=== PATIENT | female | born 1935 | race Caucasian/White ===

== ENCOUNTER → 2017-03-03 | Outpatient (CLI) | payer OTHER ==
[~2017-03-03] MED LIST: ASPI325T PO; ATOR20TA PO; AVASINJ IV; CITA10TA4 PO; NAPR220T95 PO; PLAV75TA PO; ZITHTAB PO
--- NOTE | 2017-03-04 09:30 | RSPPFT ---
DATE OF PROCEDURE: 03/03/17 COMMENTS: Spirometry shows FVC of 1.4 at 56% of predicted, FEV1 of 0.6 at 36%, FEV1/FVC ratio is decreased. Flow is decreased at FEF 25, FEF 50, FEF 75 and FEF 25-75. Good response after acutely inhaled bronchodilator treatment noted. Lung volumes show residual volume is normal. TLC is normal. Diffusion capacity is decreased. Flow volume loop indicates an obstructive pattern. IMPRESSION: 1. Severe obstructive lung disease. 2. Good response after bronchodilator treatment. 3. Normal lung volumes. 4. Severely decreased diffusion capacity.
== END ==
LOC: HRSP 12:56
PROVIDERS: ATTEND Internal Medicine
DX: R06.00 Dyspnea, unspecified (principal)
CPT/HCPCS: 94060; 94726; 94729

== ENCOUNTER 2017-04-16 09:47 | Emergency (ER) | payer OTHER ==
[~2017-04-16] VITALS: Ht 154.9 cm; Wt 61.2 kg
[~2017-04-16 09:47] MED LIST changes: -ZITHTAB PO
[2017-04-16 09:48] VITALS: BP 163/74; PULSE 95; RESP 20; TEMP 98.6; O2SAT 94
[2017-04-16] MEDS ORDERED: SODIUM CHLORIDE 0.9% FLUSH 10 ML FLUSH IVF PRN (10:15)
--- NOTE | 2017-04-16 10:17 | PD ---
HPI Chief Complaint: GI Complaint Time Seen by Provider: 10:10 Travel History International Travel<30 days: No Contact w/Intl Traveler<30days: No Traveled to known affect area: No History of Present Illness HPI 81-year-old female patient presents to the ER today for 2 days history of coughing up small specks of blood. She states that she has had several weeks' history of some shortness of breath and dyspnea on exertion. She denies any fevers, chest pains, vomiting, black stools, bleeding gums, or any other issues. She has history of atrial fibrillation and is on Eliquis, has been on it for about 5 months. She denies any previous history of coughing up blood. Modifying Factors: None Associated Signs & Symptoms: Hemoptysis for 2 days, shortness of breath Risk Factors: On Eliquis [facility] Past Medical History Hx Anticoagulant Therapy: Yes (DAILY ASPIRIN) Arthritis: Yes Atrial Fibrillation: Yes Anxiety: Yes Depression: Yes Cancer: Yes (COLON) High Cholesterol: Yes Chemotherapy: No Cerebrovascular Accident: Yes (TIA) Coronary Artery Disease: Yes Diminished Hearing: No Gastrointestinal Disorders: Yes (COLON CA) Headaches: Yes Hypertension: Yes Kidney Stones: Yes Respiratory: Yes Immunizations Current: Yes Radiation Therapy: No Menopausal: Yes Past Surgical History Abdominal Surgery: Yes (COLON RESECTION, UMBILLICAL HERNIA REPAIR) Cholecystectomy: Yes (1991) Gynecologic Surgery: Yes (HYSTERECTOMY) Hysterectomy: Yes (PARTIAL) Other Surgery: Yes (COLON RESECTION 1991) Social History Alcohol Use: No Tobacco Use: No (QUIT 20 YEARS AGO (12/25/15)) Substance Use: No Allergies-Medications (Allergen,Severity, Reaction): Coded Allergies: No Known Allergies (Unverified , 12/25/15) Reported Meds & Prescriptions Reported Meds & Active Scripts Active Reported Plavix (Clopidogrel Bisulfate) 75 Mg Tab 75 Mg PO DAILY Aleve (Naproxen Sodium) 220 Mg Tab 220 Mg PO BID Atorvastatin 20 mg tab (Atorvastatin Calcium) 20 Mg Tab 20 Mg PO HS Aspirin 325 mg (Aspirin) 325 Mg Tab 325 Mg PO DAILY Avastin 25 Mg/ml inj (Bevacizumab) Inj 1.25 Mg IV Citalopram Hydrobromide 10 Mg Tab 10 Mg PO DAILY Review of Systems Except as stated in HPI: all other systems reviewed are Neg Physical Exam Narrative GENERAL: Well-developed elderly white female patient currently in mild distress. Awake and oriented 3. SKIN: Focused skin assessment warm/dry. HEAD: Atraumatic. Normocephalic. EYES: Pupils equal and round. No scleral icterus. No injection or drainage. ENT: No nasal bleeding or discharge. Mucous membranes pink and moist. NECK: Trachea midline. No JVD. CARDIOVASCULAR: Regular rate and rhythm. No murmur appreciated. RESPIRATORY: No accessory muscle use. Clear to auscultation. Breath sounds equal bilaterally. GASTROINTESTINAL: Abdomen soft, non-tender, nondistended. Hepatic and splenic margins not palpable. MUSCULOSKELETAL: No obvious deformities. No clubbing. No cyanosis. No edema. NEUROLOGICAL: Awake and alert. No obvious cranial nerve deficits. Motor grossly within normal limits. Normal speech. PSYCHIATRIC: Appropriate mood and affect; insight and judgment normal. Data Data Last Documented VS Vital Signs Date Time Temp Pulse Resp B/P (MAP) Pulse Ox O2 Delivery O2 Flow Rate FiO2 04/16/17 11:28 65 16 151/58 (89) 94 04/16/17 09:48 98.6 Orders Orders Chest, Single Ap (04/16/17 10:03) Complete Blood Count With Diff (04/16/17 10:10) Comprehensive Metabolic Panel (04/16/17 10:10) B-Type Natriuretic Peptide (04/16/17 10:10) D-Dimer (04/16/17 10:10) Act Partial Throm Time (Ptt) (04/16/17 10:10) Prothrombin Time / Inr (Pt) (04/16/17 10:10) Iv Access Insert/Monitor (04/16/17 10:10) Ecg Monitoring (04/16/17 10:10) Oximetry (04/16/17 10:10) Oxygen Administration (04/16/17 10:10) Sodium Chloride 0.9% Flush (Ns Flush) (04/16/17 10:15) Labs Laboratory Tests Test 04/16/17 10:15 White Blood Count 7.3 TH/MM3 Red Blood Count 4.32 MIL/MM3 Hemoglobin 13.0 GM/DL Hematocrit 38.2 % Mean Corpuscular Volume 88.4 FL Mean Corpuscular Hemoglobin 30.1 PG Mean Corpuscular Hemoglobin Concent 34.1 % Red Cell Distribution Width 12.1 % Platelet Count 345 TH/MM3 Mean Platelet Volume 7.0 FL Neutrophils (%) (Auto) 69.1 % Lymphocytes (%) (Auto) 18.5 % Monocytes (%) (Auto) 10.1 % Eosinophils (%) (Auto) 1.8 % Basophils (%) (Auto) 0.5 % Neutrophils # (Auto) 5.2 TH/MM3 Lymphocytes # (Auto) 1.3 TH/MM3 Monocytes # (Auto) 0.7 TH/MM3 Eosinophils # (Auto) 0.1 TH/MM3 Basophils # (Auto) 0.0 TH/MM3 CBC Comment DIFF FINAL Differential Comment Prothrombin Time 10.2 SEC Prothromb Time International Ratio 0.9 RATIO Activated Partial Thromboplast Time 27.3 SEC D-Dimer Quantitative (PE/DVT) 0.47 MG/L FEU Blood Urea Nitrogen 9 MG/DL Creatinine 0.67 MG/DL Random Glucose 101 MG/DL Total Protein 6.9 GM/DL Albumin 3.2 GM/DL Calcium Level 9.0 MG/DL Alkaline Phosphatase 87 U/L Aspartate Amino Transf (AST/SGOT) 16 U/L Alanine Aminotransferase (ALT/SGPT) 15 U/L Total Bilirubin 0.5 MG/DL Sodium Level 131 MEQ/L Potassium Level 3.3 MEQ/L Chloride Level 92 MEQ/L Carbon Dioxide Level 31.8 MEQ/L Anion Gap 7 MEQ/L Estimat Glomerular Filtration Rate 85 ML/MIN B-Type Natriuretic Peptide 42 PG/ML MDM Medical Decision Making Medical Screen Exam Complete: Yes Emergency Medical Condition: Yes Medical Record Reviewed: Yes Interpretation(s) Laboratory Tests Test 04/16/17 10:15 Monocytes (%) (Auto) 10.1 % (0.0-8.0) Albumin 3.2 GM/DL (3.4-5.0) Sodium Level 131 MEQ/L (136-145) Potassium Level 3.3 MEQ/L (3.5-5.1) Chloride Level 92 MEQ/L (98-107) Estimat Glomerular Filtration Rate 85 ML/MIN (>89) Last 24 hours Impressions Chest X-Ray 04/16/17 1003 Signed Impressions: Service Date/Time: Tuesday, April 16, 2017 10:31 - CONCLUSION: No acute cardiopulmonary abnormality is identified. Stephen Casas MD Differential Diagnosis Bronchitis versus coagulopathy versus pneumonia Narrative Course Chest x-ray did not show any signs of acute pneumonia. Patient states she has been coughing with sputum production suspected bronchitis has irritated her airways causing some of the bleeding. Patient is on Eliquis which she last took last night. And I suspect that this is was making it worse. Vital signs are stable in the ER. H&H is stable. She is coughing up small amounts of blood at time and at this point, I do not think that this would cause significant anemia as well as this settles down within the next day or so. My plan would be to hold Eliquis. I have talked her regarding close follow-up on Tuesday with primary care doctor and crm marketing manager versus observation admission, and she states that she would prefer to go home and see how she does. They may need to reevaluate whether Eliquis can be restarted at that point. She may need further follow-up with pulmonary medicine as well if symptoms continue. She apparently has already gotten a pulmonary function test ordered by Dr. Aguirre which can be evaluated further with him. Return for any worsening in bleeding, shortness of breath, or new symptoms as needed. The plan has discussed with her and she states understanding. Diagnosis Primary Impression: Cough with hemoptysis Additional Impression: Bronchitis Med/Other Pt SpecificInfo: Prescription(s) given, Med Stopped (Eliquis) Scripts Azithromycin (Zithromax Z-Roberto) 250 Mg Dspk 250 MG PO DIRECTED for Infection, #1 DSPK 0 Refills 500 MG (2 tabs) day 1, then 1 tab days 2-5. Prov: Demi Delcid MD 04/16/17 Disposition: 01 DISCHARGE HOME Condition: Stable Demi Delcid MD Apr 16, 2017 10:17
[2017-04-16 10:26] LABS: AUTOMATED NEUTROPHIL # 5.2 TH/MM3 (1.8-7.7); BASOPHIL % 0.5 % (0.0-2.0); EOSINOPHIL # 0.1 TH/MM3 (0-0.4); EOSINOPHIL % 1.8 % (0.0-4.0); HEMATOCRIT 38.2 % (35.0-46.0); HEMO FLAGS DIFF FINAL; LYMPH % 18.5 % (9.0-44.0); LYMPHOCYTE # 1.3 TH/MM3 (1.0-4.8); MEAN CELL VOLUME 88.4 FL (80.0-100.0); MEAN CORPUSCULAR HEMOGLOBIN 30.1 PG (27.0-34.0); MEAN CORPUSCULAR HGB CONC 34.1 % (32.0-36.0); MONO % 10.1 % (0.0-8.0); NEUT % 69.1 % (16.0-70.0); PLATELET COUNT 345 TH/MM3 (150-450); RED BLOOD COUNT 4.32 MIL/MM3 (4.00-5.30); RED CELL DISTRIBUTION WIDTH 12.1 % (11.6-17.2); WHITE BLOOD COUNT 7.3 TH/MM3 (4.0-11.0)
[2017-04-16 10:34] LABS: CHLORIDE 92 MEQ/L (98-107); POTASSIUM 3.3 MEQ/L (3.5-5.1); SODIUM (NA) 131 MEQ/L (136-145)
[2017-04-16 10:37] LABS: ANION GAP 7 MEQ/L (5-15); BICARBONATE 31.8 MEQ/L (21.0-32.0)
[2017-04-16 10:38] LABS: BLOOD UREA NITROGEN 9 MG/DL (7-18)
[2017-04-16 10:40] LABS: ALT (GPT) 15 U/L (10-53); AST (GOT) 16 U/L (15-37); GLOMERULAR FILTRATION RATE 85 ML/MIN (>89)
[2017-04-16 10:42] LABS: TOTAL BILIRUBIN ADULT 0.5 MG/DL (0.2-1.0)
[2017-04-16 10:43] LABS: ALKALINE PHOSPHATASE 87 U/L (45-117)
[2017-04-16 10:55] LABS: APTT (PATIENT) 27.3 SEC (24.3-30.1); INTERNATIONAL NORMALIZED RATIO 0.9 RATIO; PROTHROMBIN TIME - PATIENT 10.2 SEC (9.8-11.6)
--- NOTE | 2017-04-16 11:13 | RADRPT ---
EXAM DATE/TIME: 04/16/2017 10:31 [facility] COMPARISON: CHEST SINGLE AP, October 09, 2014, 21:13. INDICATIONS : Cough. Congestion. MEDICAL HISTORY : None. SURGICAL HISTORY : None. ENCOUNTER: Initial ACUITY: 3 days PAIN SCORE: 6/10 LOCATION: Bilateral chest FINDINGS: Portable AP view of the chest demonstrates a normal-sized cardiac silhouette. No effusion, consolidat ion, or pneumothorax is visualized. The bones and soft tissues demonstrate no acute abnormality. Ther e is calcification of aorta. A cardiac device overlies the left inferior hemithorax. CONCLUSION: No acute cardiopulmonary abnormality is identified. Stephen Casas MD on April 16, 2017 at 11:10 Board Certified Radiologist. This report was verified electronically.
[2017-04-16 11:28] VITALS: BP 151/58; PULSE 65; RESP 16; O2SAT 94
[2017-04-16] MEDS ORDERED: ZITHTAB PO (11:42)
== END 2017-04-16 11:50 | disposition home or self-care (01) ==
LOC: PHED 09:47
DX: J40 Bronchitis, not specified as acute or chronic (principal); R04.2 Hemoptysis; R06.02 Shortness of breath; I48.91 Unspecified atrial fibrillation; Z79.01 Long term (current) use of anticoagulants; Z87.891 Personal history of nicotine dependence
CPT/HCPCS: 71010; 80053; 83880; 85025; 85379; 85610; 85730; 99284

== ENCOUNTER 2017-05-21 12:12 | Emergency (ER) | payer OTHER ==
[~2017-05-21] VITALS: Ht 154.9 cm; Wt 63.0 kg
[~2017-05-21 12:12] MED LIST changes: +ZITHTAB PO
[2017-05-21 12:19] VITALS: BP 189/79; PULSE 70; RESP 16; TEMP 98.9; O2SAT 95
[2017-05-21] MEDS ORDERED: ACETAMINOPHEN 325 MG TAB PO ONE (12:30)
[2017-05-21] MEDS ORDERED: TETANUS/DIPHTHERIA TOXOID ADULT 0.5 ML VIAL IM ONE (12:30)
--- NOTE | 2017-05-21 12:34 | PD ---
HPI Chief Complaint: Fall Time Seen by Provider: 12:25 Travel History International Travel<30 days: No Contact w/Intl Traveler<30days: No Traveled to known affect area: No History of Present Illness HPI The patient is a 81-year-old female who presents to the emergency department via private vehicle for a head injury after a fall. The patient states she was washing the back window of her van with Windex when she stepped backwards, lost her balance, and fell to the ground. The patient denies any loss of consciousness, however, does state she struck the back of her head and has a hematoma over the affected area associated with cephalgia. The patient also complains of a contusion to the left scapula and knocked the wind out of her, complains of some bilateral chest pain after the fall. She also complains of pain over the left hip secondary to the fall, however, is able to bear weight without difficulty. She does note abrasions to left upper extremity and the left foot, is unsure when her last tetanus shot was administered. The patient was taken off of Eliquis approximately 6 weeks ago for hemoptysis. The patient denies any acute shortness of breath, does note bilateral chest wall pain after falling. Symptoms are mild to moderate, exacerbated after falling, and there are no current alleviating factors. PFSH Past Medical History Hx Anticoagulant Therapy: No (off for apporx 1 month) Arthritis: Yes Atrial Fibrillation: Yes Anxiety: Yes Depression: Yes Cancer: Yes (COLON) Cardiovascular Problems: Yes (htn on med, a-fib) High Cholesterol: Yes Chemotherapy: No Cerebrovascular Accident: Yes (tia's) Coronary Artery Disease: Yes Diminished Hearing: No Gastrointestinal Disorders: Yes (COLON CA) Headaches: Yes Hypertension: Yes Kidney Stones: Yes Respiratory: Yes (copd) Immunizations Current: Yes Radiation Therapy: No Menopausal: Yes Past Surgical History Abdominal Surgery: Yes (COLON RESECTION, UMBILLICAL HERNIA REPAIR) Cholecystectomy: Yes (1991) Gynecologic Surgery: Yes (HYSTERECTOMY) Hysterectomy: Yes (PARTIAL) Other Surgery: Yes (COLON RESECTION 1991) Social History Alcohol Use: No Tobacco Use: No (QUIT 20 YEARS AGO (12/25/15)) Substance Use: No Allergies-Medications (Allergen,Severity, Reaction): Coded Allergies: No Known Allergies (Unverified , 05/21/17) Reported Meds & Prescriptions Reported Meds & Active Scripts Active Reported Avastin Inj (Bevacizumab) 25 Mg/Ml Inj Symbicort Inh (Budesonide/Formoterol Fumarate) 80-4.5 Mcg/Act Aero 2 Puff INH Q12HR Hydrochlorothiazide 25 Mg Tab 25 Mg PO DAILY Atorvastatin (Atorvastatin Calcium) 20 Mg Tab 20 Mg PO HS Citalopram (Citalopram Hydrobromide) 10 Mg Tab 10 Mg PO DAILY Review of Systems Except as stated in HPI: all other systems reviewed are Neg HENT: Positive: Headaches, No: Neck Pain Cardiovascular: Positive: Chest Pain or Discomfort (bilateral chest wall pain after falling) Respiratory: No: Shortness of Breath Gastrointestinal: No: Nausea, Vomiting, Abdominal Pain Musculoskeletal: Positive: Pain Skin: Positive Other (multiple abrasions) Neurologic: Positive: Headache, No: Change in Mentation, Paresthesia, Sensory Disturbance Physical Exam Narrative GENERAL: Awake, alert, pleasant 81-year-old female who appears her stated age and is in no acute respiratory distress. SKIN: Focused skin assessment warm/dry. Multiple abrasions to left upper extremity and left ankle. HEAD: Hematoma noted over the superior left occipital area with no active bleeding.. EYES: Pupils equal and round. Pupils are 3 mm bilateral and reactive. ENT: No nasal bleeding or discharge. Mucous membranes pink and moist. NECK: Trachea midline. No JVD. No midline tenderness. CARDIOVASCULAR: Regular rate and rhythm. No murmur appreciated. RESPIRATORY: No accessory muscle use. Clear to auscultation. Breath sounds equal bilaterally. GASTROINTESTINAL: Abdomen soft, non-tender, nondistended. Back: Patient has a contusion and abrasion over the left scapula. MUSCULOSKELETAL: Hematoma noted over the left hip the patient is able to bear weight on the affected extremity. Full range of motion of the upper extremity is bilaterally. NEUROLOGICAL: Awake and alert. No obvious cranial nerve deficits. Motor grossly within normal limits. Normal speech. Nonfocal. Oriented 4. Follows commands without difficulty. PSYCHIATRIC: Appropriate mood and affect; insight and judgment normal. Data Data Last Documented VS Vital Signs Date Time Temp Pulse Resp B/P (MAP) Pulse Ox O2 Delivery O2 Flow Rate FiO2 05/21/17 12:19 98.9 70 16 189/79 (115) [address] Brain W/O Iv Contrast(Rout) (05/21/17 ) Chest, Single Ap (05/21/17 ) Pelvis, Ap Only (Routine) (05/21/17 ) Tetanus/Diphtheria Tox Adult (Tetanus/Di (05/21/17 12:30) Acetaminophen (Tylenol) (05/21/17 12:30) Ct Cerv Spine W/O Contrast (05/21/17 ) Ed Discharge Order (05/21/17 14:57) MDM Medical Decision Making Medical Screen Exam Complete: Yes Emergency Medical Condition: Yes Medical Record Reviewed: Yes Interpretation(s) Chest x-ray reveals no acute disease X-ray pelvis reveals osteopenia with no acute fracture or malalignment. Postsurgical changes in the pelvis. Last Impressions Head CT 05/21/17 0000 Signed Impressions: Service Date/Time: Sunday, May 21, 2017 13:28 - CONCLUSION: Soft tissue swelling over the left parietal bone with no evidence of hemorrhage or fracture. Tiago Reece MD Cervical Spine CT 05/21/17 0000 Signed Impressions: Service Date/Time: Sunday, May 21, 2017 13:28 - CONCLUSION: Negative trauma CT. Tiago Reece MD Differential Diagnosis Differential diagnosis includes mechanical fall, closed head injury, intracranial hemorrhage, subdural hemorrhage, skull fracture, hip contusion, hip fracture, pneumothorax, scapular fracture, chest wall contusion. Narrative Course CT of the brain and cervical spine were obtained. X-ray of the chest and pelvis were obtained. The patient's tetanus shot was updated. The patient was administered Tylenol 650 mg orally for pain. CT the brain and cervical spine are negative. X-ray the chest and x-ray of the pelvis are unremarkable. The patient is advised to have wound care instructions, Steri-Strips were applied to the skin flap on the extensor surface of the left hand, she is advised to clean the area twice daily with soap and water and Polysporin as directed. Tylenol and or Motrin as needed for pain. Follow-up with her primary physician. Diagnosis Primary Impression: Hematoma Additional Impressions: Multiple abrasions Closed head injury Qualified Codes: S09.90XA - Unspecified injury of head, initial encounter Patient Instructions: General Instructions Additional Instructions: Tylenol and/or Motrin as needed for pain. Ice to the hematoma. Wound care instructions. Follow-up with her primary physician. Please provide the patient a copy of her CT results and lab results at discharge. Return if symptoms worsen or progress. Med/Other Pt SpecificInfo: No Change to Meds Disposition: 01 DISCHARGE HOME Condition: Stable Theodore Harper MD May 21, 2017 12:34
[2017-05-21] MEDS ORDERED: SYMB80AE INH (12:43)
[2017-05-21] MEDS ORDERED: CITA10TA4 PO (12:43)
[2017-05-21] MEDS ORDERED: HYDR25TA5 PO (12:43)
[2017-05-21] MEDS ORDERED: ATOR20TA15 PO (12:43)
[2017-05-21] MEDS ORDERED: BEVA100P (12:43)
--- NOTE | 2017-05-21 13:48 | RADRPT ---
EXAM DATE/TIME: 05/21/2017 13:28 [facility] COMPARISON: CT BRAIN W/O CONTRAST, December 25, 2015, 13:43. INDICATIONS : Trauma, fall today onto posterior head. RADIATION DOSE: 39.33 CTDIvol (mGy) MEDICAL HISTORY : Carcinoma, colon. Hypertension. SURGICAL HISTORY : Hysterectomy. ENCOUNTER: Initial ACUITY: 1 day PAIN SCALE: 4/10 LOCATION: Bilateral head TECHNIQUE: Multiple contiguous axial images were obtained of the head. Using automated exposure control and adj ustment of the mA and/or kV according to patient size, radiation dose was kept as low as reasonably a chievable to obtain optimal diagnostic quality images. DICOM format image data is available electro nically for review and comparison. FINDINGS: CEREBRUM: The ventricles are normal for age. No evidence of midline shift, mass lesion, hemorrhage or acute in farction. No extra-axial fluid collections are seen. POSTERIOR FOSSA: The cerebellum and brainstem are intact. The 4th ventricle is midline. The cerebellopontine angle i s unremarkable. EXTRACRANIAL: The visualized portion of the orbits is intact. SKULL: The calvaria is intact. No evidence of skull fracture. There is soft tissue swelling over the left p arietal bone. CONCLUSION: Soft tissue swelling over the left parietal bone with no evidence of hemorrhage or fr acture. Tiago Reece MD on May 21, 2017 at 13:45 Board Certified Radiologist. This report was verified electronically.
--- NOTE | 2017-05-21 13:59 | RADRPT ---
EXAM DATE/TIME: 05/21/2017 13:28 [facility] COMPARISON: No previous studies available for comparison. INDICATIONS : Trauma, fall today onto posterior head RADIATION DOSE: 42.10 CTDIvol (mGy) MEDICAL HISTORY : Hypertension. Carcinoma, colon. SURGICAL HISTORY : Hysterectomy. ENCOUNTER: Initial ACUITY: 1 day PAIN SCALE: 4/10 LOCATION: Bilateral neck TECHNIQUE: Volumetric scanning of the cervical spine was performed. Multiplanar reconstructions i n the sagittal, coronal and oblique axial planes were performed. Using automated exposure control a nd adjustment of the mA and/or kV according to patient size, radiation dose was kept as low as reason ably achievable to obtain optimal diagnostic quality images. DICOM format image data is available e lectronically for review and comparison. FINDINGS: The sagittal reconstructions demonstrate normal alignment and normal prevertebral soft tissues. The d ens is intact and there is a normal atlantoaxial relationship. Degenerative disc changes present at t he C5-6 and C6-7 levels with disc space narrowing and anterior spurring. There are degenerative villegas es involving the atlantoaxial joint. The axial images demonstrate that the vertebral bodies and posterior elements are intact. The soft ti ssues are within normal limits. There is no evidence of acute fracture or malalignment. There are deg enerative changes involving the left facet joints. CONCLUSION: Negative trauma CT. Tiago Reece MD on May 21, 2017 at 13:57 Board Certified Radiologist. This report was verified electronically.
--- NOTE | 2017-05-21 14:51 | RADRPT ---
EXAM DATE/TIME: 05/21/2017 14:25 [facility] COMPARISON: CHEST SINGLE AP, April 16, 2017, 10:31. INDICATIONS : Fall MEDICAL HISTORY : Stroke. a fib SURGICAL HISTORY : A fib recorder ENCOUNTER: Initial ACUITY: 1 day PAIN SCORE: 0/10 LOCATION: Bilateral chest FINDINGS: A single view of the chest demonstrates the lungs to be symmetrically aerated without evidence of mas s, infiltrate or effusion. The cardiomediastinal contours are unremarkable. Mild atherosclerotic ch anges are again noted in the aorta. Costal cartilage calcifications present. There is mild scoliosis. Osseous structures are intact. A cardiac device is again projected over the left lower chest. CONCLUSION: No acute disease. Tiago Reece MD on May 21, 2017 at 14:49 Board Certified Radiologist. This report was verified electronically.
--- NOTE | 2017-05-21 14:54 | RADRPT ---
EXAM DATE/TIME: 05/21/2017 14:31 [facility] COMPARISON: No previous studies available for comparison. INDICATIONS : Fall. Pelvic pain. MEDICAL HISTORY : Stroke. SURGICAL HISTORY : a fib recorder ENCOUNTER: Initial ACUITY: 1 day PAIN SCORE: 6/10 LOCATION: Left hip area FINDINGS: A single frontal view of the pelvis demonstrates no evidence of fracture. The bony pelvic ring is in tact. There is diffuse osteopenia. There are multiple surgical clips and hoang in the pelvis. Anast omotic hoang are present as well. The soft tissues are intact. CONCLUSION: 1. Osteopenia with no acute fracture or malalignment. 2. Post surgical changes in the pelvis. Tiago Reece MD on May 21, 2017 at 14:51 Board Certified Radiologist. This report was verified electronically.
== END 2017-05-21 15:06 | disposition home or self-care (01) ==
LOC: PHED 12:12
DX: S09.90XA Unspecified injury of head, initial encounter (principal); S00.83XA Contusion of other part of head, initial encounter; S40.012A Contusion of left shoulder, initial encounter; M85.80 Other specified disorders of bone density and structure, unspecified site; R07.9 Chest pain, unspecified; J44.9 Chronic obstructive pulmonary disease, unspecified; I10 Essential (primary) hypertension; W18.30XA Fall on same level, unspecified, initial encounter; Z23 Encounter for immunization
CPT/HCPCS: 70450; 71010; 72125; 72170; 90471; 90714

== ENCOUNTER 2017-10-07 06:30 | Day surgery (SDC) | payer OTHER ==
[~2017-10-07] VITALS: Ht 154.9 cm; Wt 62.7 kg
[~2017-10-07 06:30] MED LIST changes: -ASPI325T PO; -ATOR20TA PO; +ATOR20TA15 PO; -AVASINJ IV; +BEVA100P; +HYDR25TA5 PO; -NAPR220T95 PO; -PLAV75TA PO; +SYMB80AE INH; -ZITHTAB PO
[2017-10-07 06:44] VITALS: BP 174/84; PULSE 75; RESP 20; TEMP 98.1; O2SAT 92
[2017-10-07] MEDS ORDERED: VITA10002 PO (06:46)
[2017-10-07] MEDS ORDERED: SYMB160A INH (06:46)
[2017-10-07] MEDS ORDERED: BUSP5TAB PO (06:46)
[2017-10-07] MEDS ORDERED: APIX5TAB PO (06:50)
[2017-10-07] MEDS ORDERED: SODIUM CHLORID 0.9% 500 ML IV PRN (07:00)
[2017-10-07] MEDS ORDERED: CHLORHEXIDINE GLUCONATE 2 % 1 PACK (2 CLOTHS) TOPICAL PRN (07:00)
[2017-10-07] MEDS ORDERED: METOPROLOL TARTRATE 25 MG TAB PO PRN (07:00)
[2017-10-07] MEDS ORDERED: LACTATED RINGER'S 1000 ML IV PRN (07:00)
[2017-10-07] MEDS ORDERED: POVIDONE IODINE 5% (ANTISEPSIS KIT) 4 APPLICATIONS EACH NARE PRN (07:00)
[2017-10-07] MEDS ORDERED: SODIUM CHLOR 0.45% 1000 ML INJ 1,000 ML IV SCH (07:00)
[2017-10-07 07:10] LABS: AUTOMATED NEUTROPHIL # 6.2 TH/MM3 (1.8-7.7); BASOPHIL % 0.5 % (0.0-2.0); EOSINOPHIL # 0.2 TH/MM3 (0-0.4); EOSINOPHIL % 2.4 % (0.0-4.0); HEMOGLOBIN 12.1 GM/DL (11.6-15.3); LYMPH % 15.7 % (9.0-44.0); LYMPHOCYTE # 1.4 TH/MM3 (1.0-4.8); MEAN CELL VOLUME 89.9 FL (80.0-100.0); MEAN CORPUSCULAR HGB CONC 34.5 % (32.0-36.0); MEAN PLATELET VOLUME 6.2 FL (7.0-11.0); MONO % 12.4 % (0.0-8.0); MONOCYTE # 1.1 TH/MM3 (0-0.9); PLATELET COUNT 336 TH/MM3 (150-450); RED BLOOD COUNT 3.89 MIL/MM3 (4.00-5.30); RED CELL DISTRIBUTION WIDTH 13.3 % (11.6-17.2); WHITE BLOOD COUNT 8.9 TH/MM3 (4.0-11.0)
[2017-10-07] MEDS ORDERED: DO NOT ADM ANY ANTICOAGULANT DRUGS PRN (08:30)
[2017-10-07 09:05] VITALS: BP 146/72; PULSE 68; RESP 18; TEMP 98.3; O2SAT 94
[2017-10-07 09:20] VITALS: BP 130/68; PULSE 66; RESP 18; O2SAT 94
--- NOTE | 2017-10-07 09:24 | MP ---
cc: Tera Haley MD DATE OF OPERATION: 10/07/2017 PROCEDURE PERFORMED: Fiberoptic bronchoscopy, flexible. REASON FOR BRONCHOSCOPY: Hemoptysis, rule out underlying malignancy. Fiberoptic bronchoscopy performed via LMA. Vocal cords visualized, appeared intact. Trachea mildly hyperemic, yg sharp. Right main stem bronchus, right upper, middle, and lower lobe; left main bronchus, left upper and lower lobes were inspected without obstructive pathology or mass lesion. Washings obtained from both sides of the tracheobronchial tree for routine TB, fungal cultures, as well as cytological exam. [place] biopsy in right lower lobe obtained, which was more hyperemic than the rest of the tracheobronchial tree. No active bleeding was identified. Procedure well tolerated. The patient was transferred to the recovery in stable condition. IMPRESSION: 1. Mild tracheobronchitis. 2. No obstruction or mass lesion. 3. No evidence of active hemoptysis. 4. Procedure well tolerated. 5. The patient transferred to recovery in stable condition. Tera Haley MD WWW/NAIDA , 09:07 AM , 09:22 AM
[2017-10-07 09:50] VITALS: BP 147/71; PULSE 62; RESP 18; O2SAT 94
[2017-10-07 10:45] VITALS: RESP 18; O2SAT 93
--- NOTE | 2017-10-07 11:18 | EKG ---
Date Performed: 10/07/2017 Time Performed: 06:57:39 PTAGE: 82 years EKG: Sinus rhythm NORMAL ECG PREVIOUS TRACING : 05/05/2016 12.35 Since the previous tracing, no significant change noted DOCTOR: Esteban Navarro Interpretating Date/Time 10/07/2017 11:13:00
== END 2017-10-07 11:00 | disposition home or self-care (01) ==
LOC: HRIP 06:30 → HROP 06:30
PROVIDERS: ATTEND Internal Medicine Sleep Medicine
DX: R04.2 Hemoptysis (principal); J40 Bronchitis, not specified as acute or chronic; J44.9 Chronic obstructive pulmonary disease, unspecified; I48.91 Unspecified atrial fibrillation; I10 Essential (primary) hypertension; E78.5 Hyperlipidemia, unspecified; Z01.810 Encounter for preprocedural cardiovascular examination; Z01.818 Encounter for other preprocedural examination
CPT/HCPCS: 31625; 85025; 85610; 85730; 87015; 87070; 87102; 87116; 87205; 87206; 88112; 88305; 93005

== ENCOUNTER 2017-11-10 06:35 | Day surgery (SDC) | payer OTHER ==
[2017-11-10] VITALS (8 sets, daily range): BP systolic 113–175; BP diastolic 49–81; PULSE 50–68; RESP 16–18; TEMP 98.2; O2SAT 91–98
[~2017-11-10] VITALS: Ht 154.9 cm; Wt 69.5 kg
[~2017-11-10 06:35] MED LIST changes: +APIX5TAB PO; +BUSP5TAB PO; +SYMB160A INH; -SYMB80AE INH; +VITA10002 PO
[2017-11-10] MEDS ORDERED: SODIUM CHLOR 0.9% 1000 ML IV SCH (07:15)
[2017-11-10] MEDS ORDERED: LIDOCAINE 1%/EPINEPHrine 1:100,000 SOLN 50 ML VIAL ONE (07:22)
[2017-11-10 07:28] LABS: AUTOMATED NEUTROPHIL # 6.6 TH/MM3 (1.8-7.7); BASOPHIL # 0.1 TH/MM3 (0-0.2); EOSINOPHIL # 0.2 TH/MM3 (0-0.4); EOSINOPHIL % 2.2 % (0.0-4.0); HEMATOCRIT 36.3 % (35.0-46.0); HEMOGLOBIN 12.5 GM/DL (11.6-15.3); LYMPH % 16.3 % (9.0-44.0); LYMPHOCYTE # 1.5 TH/MM3 (1.0-4.8); MEAN CELL VOLUME 89.9 FL (80.0-100.0); MEAN CORPUSCULAR HGB CONC 34.5 % (32.0-36.0); MEAN PLATELET VOLUME 6.6 FL (7.0-11.0); MONO % 10.1 % (0.0-8.0); NEUT % 70.4 % (16.0-70.0); PLATELET COUNT 375 TH/MM3 (150-450); RED BLOOD COUNT 4.04 MIL/MM3 (4.00-5.30); RED CELL DISTRIBUTION WIDTH 13.5 % (11.6-17.2); WHITE BLOOD COUNT 9.4 TH/MM3 (4.0-11.0)
[2017-11-10 07:35] LABS: PROTHROMBIN TIME - PATIENT 9.9 SEC (9.8-11.6)
[2017-11-10] MEDS ORDERED: MIDAZOLAM HCL 2 MG/2 ML VIAL ONE ×2 (08:39→08:40)
[2017-11-10] MEDS ORDERED: oxyCODONE/ACETAMINOPHEN 5 MG/325 MG TAB PO PRN (09:15)
--- NOTE | 2017-11-10 10:46 | RADRPT ---
EXAM DATE/TIME: 11/10/2017 10:12 [facility] COMPARISON: CT NEEDLE BIOPSY LUNG, RIGHT, November 10, 2017, 8:51. INDICATIONS : Post right side biopsy MEDICAL HISTORY : Stroke. atrial fibrillation. SURGICAL HISTORY : atrial fibrillation recorder ENCOUNTER: Initial ACUITY: 1 day PAIN SCORE: 0/10 LOCATION: Left chest FINDINGS: AP expiratory view performed following right lung biopsy fails to reveal any evidence of pneumothorax . COPD and right basilar lung mass again noted. Heart and mediastinal structures are unremarkable. CONCLUSION: No evidence of pneumothorax following right lung biopsy. Garth Virgen MD on November 10, 2017 at 10:42 Board Certified Radiologist. This report was verified electronically.
--- NOTE | 2017-11-11 07:46 | RADRPT ---
EXAM DATE/TIME: 11/10/2017 08:51 [place] COMPARISON: No previous studies available for comparison. INDICATIONS : Right lung mass. SEDATION TIME: 30 minutes BIOPSY SITE: Right Lung MEDICATION(S): 1.) 2 mg midazolam (Versed) IV 2.) 100 mcg fentanyl (Sublimaze) IV DEVICE(S): 1.) 19 gauge Coaxial 2.) 20 gauge Temno core biopsy needle MEDICAL HISTORY : Carcinoma, colon. SURGICAL HISTORY : Cholecystectomy Hysterectomy. Colon resection. ENCOUNTER: Initial ACUITY: 1 day PAIN SCORE: 0/10 LOCATION: Right Lung A total of two core specimen(s) were obtained and sent to the laboratory for pathologic evaluation. PROCEDURE: 1. CT guided lung biopsy. 2. Conscious sedation with continuous EKG and oximetry monitoring. Prior to the procedure informed consent was obtained. Any appropriate prior imaging studies were rev iewed. Using automated exposure control and adjustment of the mA and/or kV according to patient size, radiation dose was kept as low as reasonably achievable to obtain optimal diagnostic quality images. DICOM format image data is available electronically for review and comparison. The site was prepped in a sterile fashion. Full sterile technique was used, including cap, mask, nae rile gloves and gown and a large sterile sheet. Hand hygiene and 2% chlorhexidine and/or betadine/al cohol prep was utilized per protocol for cutaneous antisepsis. The skin and subcutaneous tissues wer e infiltrated with local anesthetic solution. With CT guidance the previously identified target was localized. Biopsy was performed using the presc ribed needle as above. Adequate hemostasis was obtained with compression at the puncture site. Follow-up CT scan reveals no pneumothorax. Conscious sedation was performed with the prescribed dosages and duration as above in the presence of an independent trained radiology nurse to assist in the monitoring of the patient. EKG and oximetry remained stable throughout the procedure. The patient tolerated the procedure well and there were no complications. The patient was sent to Radiology Outpatient Unit in stable condition. CONCLUSION: Uncomplicated CT guided biopsy of right lower lobe mass. Fredo Tyler MD on November 11, 2017 at 7:43 Board Certified Radiologist. This report was verified electronically.
== END 2017-11-10 13:30 | disposition home or self-care (01) ==
LOC: HRAD 06:35 → HRIP 06:39 → HRAD 13:30
PROVIDERS: ATTEND Internal Medicine Sleep Medicine
DX: R22.2 Localized swelling, mass and lump, trunk (principal); I48.91 Unspecified atrial fibrillation; I10 Essential (primary) hypertension; Z86.73 Personal history of transient ischemic attack (TIA), and cerebral infarction without residual deficits; Z85.038 Personal history of other malignant neoplasm of large intestine; Z90.49 Acquired absence of other specified parts of digestive tract; J44.9 Chronic obstructive pulmonary disease, unspecified
CPT/HCPCS: 32405; 71045; 77012; 85025; 85610; 85730; 88305; 99152; 99153; J2250; J3010; J7030

== ENCOUNTER 2018-04-02 05:10 | Inpatient (IN) ==
[2018-04-02] MEDS ORDERED: Morphine Inj 4 MG/ML Vial IV.PUSH ONE (05:24)
--- NOTE | 2018-04-02 05:33 | ED ---
HPI General Chief Complaint: Shortness of Breath/Dyspnea Stated Complaint: Stomach pain x 2 days,cough,short of breath Time Seen by Provider: 04/02/18 05:24 Source: patient Mode of arrival: ambulatory Limitations: no limitations History of Present Illness 82-year-old female with lung cancers completed 37 courses of radiation therapy has COPD atrial fibrillation peripheral vascular disease loop recorder and presents with progressively worsening epigastric pain and shortness of breath. No new lower extremity pain or swelling. Patient had no fever chills. Patient has nausea. Patient has been constipated but had small bowel movements yesterday after drinking prune juice. No report of dysuria. No report of abdominal surgery. Patient states pain is unremitting and intolerable. Patient states pain is reproducible by pushing on her abdomen. Patient denies other concerns or complaints. MD Complaint: shortness of breath and pain with inspiration Severity: moderate Consistency/Duration: intermittent Relieving factors: nothing Exacerbating factors: lying flat, exertion, coughing and inspiration Known history of: COPD and other (lung cancer) Associated symptoms: nausea/vomiting and other (abdominal pain) Treatment prior to arrival: none Related Data Home Medications Medication Instructions Recorded Confirmed alprazolam [Xanax] 0.5 mg PO DAILY PRN 04/02/18 04/02/18 apixaban [Eliquis] 2.5 mg PO BID 04/02/18 04/02/18 atorvastatin 20 mg PO DAILY 04/02/18 04/02/18 citalopram 10 mg PO DAILY 04/02/18 04/02/18 glycopyrrolate-formoterol [Bevespi 2 puff INHALATION QAM AND QPM 04/02/18 [facility] hydrochlorothiazide 25 mg PO DAILY 04/02/18 04/02/18 venlafaxine [Effexor XR] 37.5 mg PO DAILY 04/02/18 04/02/18 Allergies Allergy/AdvReac Type Severity Reaction Status Date / Time No Known Allergies Allergy Unverified 04/02/18 08:00 Review of Systems ROS: all other systems reviewed are negative PMFSH History History Provided By: Patient and Medical Record Medical History Medical History Chronic atrial fibrillation (Acute) Chronic obstructive pulmonary disease (Acute) History of colon cancer (Acute) Hypertension (Acute) Lung cancer (Acute) Transient ischemic attack (Acute) Surgical History Surgical History History of cataract surgery (Acute) History of colonoscopy (Acute) History of hernia repair (Acute) History of hysterectomy (Acute) History of loop recorder (Acute) History of partial colectomy (Acute) History of tonsillectomy (Acute) Social History Social History Smoking Status: Former smoker Tobacco Type: Cigarettes How Often Do You Have a Drink Containing Alcohol: Never Recent Travel in [facility] within the Last 8 Weeks: No Recent Out of Country Travel within the Last 8 Weeks: No Exam Narrative Exam Narrative: GENERAL: Well-nourished, well-developed patient. SKIN: Focused skin assessment warm/dry. HEAD: Normocephalic. EYES: No scleral icterus. No injection or drainage. NECK: Supple, trachea midline. No JVD or lymphadenopathy. CARDIOVASCULAR: Regular rate and rhythm without murmurs, gallops, or rubs. RESPIRATORY: Breath sounds equal bilaterally with wheezing. No accessory muscle use. GASTROINTESTINAL: Abdomen soft, epigastric tenderness to palpation without pulsatile mass, nondistended. MUSCULOSKELETAL: No cyanosis, or edema. BACK: Nontender without obvious deformity. No CVA tenderness. Course Consultations Consultation #1: Spoke with Dr. Gonzalez regarding the patient's case including her hyponatremia my concern for SIADH. He will admit patient to stepdown with telemetry monitoring. Time: 09:31 Initial Documented Vital Signs Temperature 99.2 F 04/02/18 05:14 Pulse Rate 99 H 04/02/18 05:14 Respiratory Rate 18 04/02/18 05:14 Blood Pressure 146/66 H 04/02/18 05:14 Pulse Oximetry 87 L 04/02/18 05:14 Last Documented Vital Signs Temperature 98.5 F 04/02/18 07:10 Pulse Rate 88 04/02/18 09:04 Respiratory Rate 18 04/02/18 09:04 Blood Pressure 151/71 H 04/02/18 09:33 Pulse Oximetry 96 04/02/18 09:10 Sign Out Sign Out Data: Patient Sign Out occurred on 04/02/18 at 07:24. Patient's care was discussed, and care was transferred from Shanta Carlson MD to Giuseppe Pineda MD. Sign Out Comment: Patient 82-year-old female with history of lung cancer presents with shortness of breath room air O2 saturation of 87% and epigastric abdominal pain. Patient recently completed a round of radiation therapy. Patient's had no fever chills. Patient rates pain as progressively intolerable. Patient has reproducible epigastric pain to palpation. EKG is sinus rhythm with no acute injury pattern change. Chest x-ray reveals no acute process. Labs and imaging studies otherwise pending will be referred for follow -up to oncoming physician for assessment and disposition Last updated by Shanta Carlson MD at 04/02/18 07:02 Medical Decision Making MDM Narrative Medical decision making narrative: 82-year-old female presents to the emergency department for complaint of shortness of breath and epigastric pain. Symptoms have been worsening over the past 1 week and exacerbated this morning. Patient has had bowel movements are small in quality but assisted with prune juice. Patient's had nausea without vomiting. Patient has had no chest pain. Patient just completed 37 courses of radiation therapy for lung cancer. Patient does have COPD. Patient denies other concerns or complaints. Medical Screen Exam Complete: Yes Emergency Medical Condition: Yes Differential Diagnosis Differential Diagnosis: Dyspnea PE perforated viscus gastritis peptic ulcer disease esophagitis cholecystitis choledocholithiasis pancreatitis colitis PA ACS pneumonia Medical Records Medical records reviewed: Yes I reviewed the patient's medical records. Lab Data Result diagrams: 04/02/18 06:05 04/02/18 06:05 Lab Results 04/02/18 04/02/18 04/02/18 Range/Units 06:05 06:05 06:05 CBC w Diff Auto diff final WBC 6.7 (4.0-11.0) th/mm3 RBC 3.47 L (4.00-5.30) mil/mm3 Hgb 11.1 L (11.6-15.3) gm/dL Hct 31.4 L (35.0-46.0) % MCV 90.5 (80.0-100.0) fL MCH 31.9 (27.0-34.0) pg MCHC 35.2 (32.0-36.0) % RDW 15.9 (11.6-17.2) % Plt Count 231 (150-450) th/mm3 MPV 6.6 L (7.0-11.0) fL Neut % (Auto) 64.6 (16.0-70.0) % Lymph % (Auto) 14.4 (9.0-44.0) % Bowman % (Auto) 17.5 H (0.0-8.0) % Eos % (Auto) 3.4 (0.0-4.0) % Baso % (Auto) 0.1 (0.0-2.0) % Neut # (Auto) 4.3 (1.8-7.7) th/mm3 Lymph # (Auto) 1.0 (1.0-4.8) th/mm3 Bowman # (Auto) 1.2 H (0.0-0.9) th/mm3 Eos # (Auto) 0.2 (0.0-0.4) th/mm3 Baso # (Auto) 0.0 (0.0-0.2) th/mm3 WBC Differential . Differential Comment . PT 9.5 L (9.8-11.6) sec INR 0.9 Ratio APTT 26.8 (24.3-30.1) sec Sodium 120 L* (136-145) meq/L Potassium 3.2 L (3.5-5.1) meq/L Chloride 80 L (98-107) meq/L Carbon Dioxide 30.2 (21.0-32.0) meq/L Anion Gap 10 (5-15) meq/L BUN 8 (7-18) mg/dL Creatinine 0.55 (0.50-1.00) mg/dL Estimated GFR Greater than 89 (>89) mL/min Random Glucose 123 H (74-106) mg/dL Lactic Acid (0.4-2.0) mmol/L Calcium 8.1 L (8.5-10.1) mg/dL Magnesium 1.5 (1.5-2.5) mg/dL Total Bilirubin 0.7 (0.2-1.0) mg/dL AST 22 (15-37) U/L ALT 19 (10-53) U/L Alkaline Phosphatase 91 (45-117) U/L Total Creatine Kinase 197 H (26-192) U/L CK-MB (CK-2) 3.1 (0.5-3.6) ng/mL CK-MB (CK-2) % 1.6 (0.0-4.0) % Troponin I Less than 0.02 L (0.02-0.05) ng/mL Total Protein 6.9 (6.4-8.2) g/dL Albumin 2.9 L (3.4-5.0) g/dL Lipase 65 L (73-393) U/L Ur Collection Type Urine Color (Yellw/Straw) Urine Clarity (Clear) Urine pH (5.0-8.5) Ur Specific [place] (1.002-1.035) Urine Protein (Neg-Trace) mg/dL Urine Glucose (UA) (Negative) mg/dL Urine Ketones (Negative) mg/dL Urine Occult Blood (Negative) Urine Nitrate (Negative) Urine Bilirubin (Negative) Urine Urobilinogen (Less than 2) mg/dL Ur Leukocyte Esterase (Negative) Urine RBC (0-3) /hpf Ur Squamous Epith Cells (0-5) /hpf Micro UA Comment Ur Microscopic Review Urine Culture Comments 04/02/18 04/02/18 Range/Units 06:05 08:21 CBC w Diff WBC (4.0-11.0) th/mm3 RBC (4.00-5.30) mil/mm3 Hgb (11.6-15.3) gm/dL Hct (35.0-46.0) % MCV (80.0-100.0) fL MCH (27.0-34.0) pg MCHC (32.0-36.0) % RDW (11.6-17.2) % Plt Count (150-450) th/mm3 MPV (7.0-11.0) fL Neut % (Auto) (16.0-70.0) % Lymph % (Auto) (9.0-44.0) % Bowman % (Auto) (0.0-8.0) % Eos % (Auto) (0.0-4.0) % Baso % (Auto) (0.0-2.0) % Neut # (Auto) (1.8-7.7) th/mm3 Lymph # (Auto) (1.0-4.8) th/mm3 Bowman # (Auto) (0.0-0.9) th/mm3 Eos # (Auto) (0.0-0.4) th/mm3 Baso # (Auto) (0.0-0.2) th/mm3 WBC Differential Differential Comment PT (9.8-11.6) sec INR Ratio APTT (24.3-30.1) sec Sodium (136-145) meq/L Potassium (3.5-5.1) meq/L Chloride (98-107) meq/L Carbon Dioxide (21.0-32.0) meq/L Anion Gap (5-15) meq/L BUN (7-18) mg/dL Creatinine (0.50-1.00) mg/dL Estimated GFR (>89) mL/min Random Glucose (74-106) mg/dL Lactic Acid 1.0 (0.4-2.0) mmol/L Calcium (8.5-10.1) mg/dL Magnesium (1.5-2.5) mg/dL Total Bilirubin (0.2-1.0) mg/dL AST (15-37) U/L ALT (10-53) U/L Alkaline Phosphatase (45-117) U/L Total Creatine Kinase (26-192) U/L CK-MB (CK-2) (0.5-3.6) ng/mL CK-MB (CK-2) % (0.0-4.0) % Troponin I (0.02-0.05) ng/mL Total Protein (6.4-8.2) g/dL Albumin (3.4-5.0) g/dL Lipase (73-393) U/L Ur Collection Type Clean catch Urine Color Yellow (Yellw/Straw) Urine Clarity Clear (Clear) Urine pH 7.0 (5.0-8.5) Ur Specific [place] 1.010 (1.002-1.035) Urine Protein Negative (Neg-Trace) mg/dL Urine Glucose (UA) Negative (Negative) mg/dL Urine Ketones Trace H (Negative) mg/dL Urine Occult Blood Trace (Negative) Urine Nitrate Negative (Negative) Urine Bilirubin Negative (Negative) Urine Urobilinogen 0.2 (Less than 2) mg/dL Ur Leukocyte Esterase Trace H (Negative) Urine RBC 0-3 (0-3) /hpf Ur Squamous Epith Cells 0-5 (0-5) /hpf Micro UA Comment Culture not ind Ur Microscopic Review Microscopic reviewed Urine Culture Comments Culture not ind Imaging Data Radiologist's impression: Chest X-Ray 04/02/18 05:24 CONCLUSION: No infiltrates seen. Hyperaerated lungs. Abdomen/Pelvis CT 04/02/18 06:21 CONCLUSION: 1. Irregular mass identified within the right lower lobe consistent with the patient's known carcinoma. Interstitial thickening identified within the right lower lobe and right middle lobe may represent lymphangitic spread of disease versus superimposed infectious process. 2. No evidence of inflammatory process within the abdomen or pelvis. No evidence of metastatic disease within the abdomen or pelvis. Chest CTA 04/02/18 06:21 CONCLUSION: 1. No right lower lobe carcinoma. The interstitial thickening and consolidation involving the right lower lobe and right middle lobe may represent lymphangitic spread of disease versus superimposed infectious process. 2. No evidence of PE. ECG Data EKG Prior to Arrival: No Attestation: I personally reviewed and interpreted this ECG as follows: Prior ECG tracings: not available for review Interpretation: EKG: Normal sinus rhythm rate 95 no pattern noted occasional PAC Discharge Plan Discharge Disposition Patient Disposition: 30 Still Patient Discharge Condition Condition: Stable Discharge Details Diagnosis: Hyponatremia, Acute hypokalemia Physicians Team ED Provider: Giuseppe Pineda Primary Care Provider: Olga Inman Attending Provider: Tiago Gonzalez Discharge Interventions Interventions: Vital Signs Last Done: 04/02/18 09:04 Status ED Status: Admitted Patient
--- NOTE | 2018-04-02 06:34 | XR ---
EXAM DATE: 04/02/2018 6:12 AM EDT AGE/SEX: 82 years / Female INDICATIONS: COPD. CLINICAL DATA: This is the patient's initial encounter. Patient reports that signs and symptoms have been present for 1 day and indicates a pain score of 5/10. MEDICAL/SURGICAL HISTORY: Hypertension. Carcinoma, colon. Carcinoma, lung. TIA. COPD. A-Fib. Hysterectomy. Cholecystectomy. Colon surgery. Loop recorder. COMPARISON: [facility], XR CHEST PA AND LAT, 11/17/2017. . FINDINGS: A single AP view of the chest demonstrates the lungs to be symmetrically aerated without evidence of mass, infiltrate or effusion. Horizontal linear atelectasis at the right lung base. The cardiomediast inal contours are unremarkable. Osseous structures are intact. Loop recorder device in place. CONCLUSION: No infiltrates seen. Hyperaerated lungs. Electronically signed by: Jeffy Walker MD 04/02/2018 6:33 AM EDT
[2018-04-02 06:44] LABS: Baso % (Auto) 0.1 % (0.0-2.0); Eos # (Auto) 0.2 th/mm3 (0.0-0.4); Eos % (Auto) 3.4 % (0.0-4.0); Hematocrit 31.4 % (35.0-46.0); Hemoglobin 11.1 gm/dL (11.6-15.3); Lymph % (Auto) 14.4 % (9.0-44.0); Mean Corpuscular HGB Conc 35.2 % (32.0-36.0); Mean Corpuscular Hemoglobin 31.9 pg (27.0-34.0); Mean Corpuscular Volume 90.5 fL (80.0-100.0); Mean Platelet Volume 6.6 fL (7.0-11.0); Mono # (Auto) 1.2 th/mm3 (0.0-0.9); Mono % (Auto) 17.5 % (0.0-8.0); Neut # (Auto) 4.3 th/mm3 (1.8-7.7); Neut % (Auto) 64.6 % (16.0-70.0); Platelet Count 231 th/mm3 (150-450); Red Blood Count 3.47 mil/mm3 (4.00-5.30); Red Cell Distribution Width 15.9 % (11.6-17.2); White Blood Count 6.7 th/mm3 (4.0-11.0)
[2018-04-02 07:14] LABS: Activated Partial Thrombo Time 26.8 sec (24.3-30.1); INR 0.9 Ratio; Prothrombin Time 9.5 sec (9.8-11.6)
[2018-04-02 07:36] LABS: Alanine Aminotransferase 19 U/L (10-53); Albumin 2.9 g/dL (3.4-5.0); Alkaline Phosphatase 91 U/L (45-117); Anion Gap 10 meq/L (5-15); Aspartate Aminotransferase 22 U/L (15-37); Blood Urea Nitrogen 8 mg/dL (7-18); Calcium 8.1 mg/dL (8.5-10.1); Carbon Dioxide 30.2 meq/L (21.0-32.0); Chloride 80 meq/L (98-107); Creatine Kinase 197 U/L (26-192); Glomerular Filtration Rate Greater Than 89 mL/min (>89); Glucose,Random 123 mg/dL (74-106); Lipase 65 U/L (73-393); Potassium 3.2 meq/L (3.5-5.1); Total Protein 6.9 g/dL (6.4-8.2)
[2018-04-02 07:48] LABS: Sodium 120 meq/L (136-145)
[2018-04-02] MEDS ORDERED: Potassium Chlor 10 mEq Premix 10 MEQ/100 ML PIGGYBACK IV.SIG ONE (08:03)
[2018-04-02] MEDS ORDERED: Potassium Chloride 25 MEQ Effervescent Tablet PO ONE (08:03)
[2018-04-02] MEDS ORDERED: Aluminum/Magnesium/Simethacone Susp 30 ML UDC PO ONE (08:11)
[2018-04-02] MEDS ORDERED: Potassium Chloride 20 MEQ Pwd Pkt NG/OG ONE (08:11)
[2018-04-02 08:45] LABS: Magnesium 1.5 mg/dL (1.5-2.5)
[2018-04-02 08:50] LABS: Bilirubin,Urine Negative (Negative); Clarity,Urine Clear (Clear); Color,Urine Yellow (Yellw/Straw); Glucose,Urine (UA) Negative (Negative); Leukocyte Esterase,Urine Trace (Negative); Nitrite,Urine Negative (Negative); Urobilinogen,Urine 0.2 mg/dL (Less than 2)
[2018-04-02 08:57] LABS: RBC,Urine 0-3 /hpf (0-3); Squamous Epithelial Cell,Urine 0-5 /hpf (0-5)
--- NOTE | 2018-04-02 09:08 | CT ---
EXAM DATE: 04/02/2018 8:53 AM EDT AGE/SEX: 82 years / Female INDICATIONS: Epigastric pain. CLINICAL DATA: This is the patient's initial encounter. Patient reports that signs and symptoms have been present for 2 days and indicates a pain score of 7/10. MEDICAL/SURGICAL HISTORY: Carcinoma, lung. None. ORAL CONTRAST: No oral contrast ingested. RADIATION DOSE: 16.66 CTDI (mGy) COMPARISON: [facility], CT ABDOMEN & PELVIS W CONTRAST, 02/09/2015. [facility], CHEST 1V SINGLE AP, 04/02/2018. [facility], CT SIMULATION, 01/27/2018. . TECHNIQUE: Multiple contiguous axial images were obtained through the abdomen and pelvis following b olus infusion of 75 ml Omnipaque 350 (iohexol) nonionic water-soluble contrast as a cumulative dose for multiple exams. No oral contrast ingested. Using automated exposure control and adjustment of t he mA and/or kV according to patient size, radiation dose was kept as low as reasonably achievable to obtain optimal diagnostic quality images. DICOM format image data is available electronically for r eview and comparison. FINDINGS: Lower Lungs: There is an irregular mass identified within the right lower lobe measuring 3.0 cm trans versely by 1.9 cm craniocaudally. There is interstitial thickening within the adjacent right lower lo be and within the right middle lobe. Heart size is normal. Liver: The liver has a homogeneous density without space-occupying lesion. There is no dilation of th e biliary tree. Spleen: Homogeneous density without enlargement. Pancreas: Unremarkable without mass or calcification. Kidneys: Normal in size and shape. No evidence of mass or hydronephrosis. Adrenal Glands: Unremarkable. Aorta: Extensive atherosclerosis. There is a small abdominal aortic aneurysm identified below the l evel of the renal arteries measuring 2.7 cm in AP diameter. Bowel/Mesentery: The bowel loops are grossly unremarkable. The cecum and sigmoid colon have a normal configuration. Abdominal Wall: Intact. Retroperitoneum: No evidence of adenopathy in the retrocrural, para-aortic, or deep pelvic regions. Bladder: Contours are smooth. Reproductive Organs: Surgically absent. Inguinal: The inguinal region is unremarkable without evidence of adenopathy. Bony Structures: Osteopenia and degenerative changes. CONCLUSION: 1. Irregular mass identified within the right lower lobe consistent with the patient's known carcino ma. Interstitial thickening identified within the right lower lobe and right middle lobe may represen t lymphangitic spread of disease versus superimposed infectious process. 2. No evidence of inflammatory process within the abdomen or pelvis. No evidence of metastatic disea se within the abdomen or pelvis. Electronically signed by: Lisa Guzman MD 04/02/2018 9:07 AM EDT
--- NOTE | 2018-04-02 09:18 | CT ---
EXAM DATE: 04/02/2018 8:55 AM EDT AGE/SEX: 82 years / Female INDICATIONS: Short of breath. CLINICAL DATA: This is the patient's initial encounter. Patient reports that signs and symptoms have been present for 2 days and indicates a pain score of 7/10. MEDICAL/SURGICAL HISTORY: Carcinoma, lung. None. RADIATION DOSE: 12.40 CTDI (mGy) COMPARISON: [facility], CHEST 1V SINGLE AP, 04/02/2018. [facility], CHEST EXPIRATION ONLY, 11/10/2017. . TECHNIQUE: Volumetric scanning was performed using a multi-row detector CT scanner during bolus infu kofi of 75 ml Omnipaque 350 (iohexol) nonionic water-soluble contrast as a cumulative dose for multi ple exams. The data was post processed with a variety of visualization algorithms including full volu me maximum intensity projection and sliding thin slab reformation. Using automated exposure control a nd adjustment of the mA and/or kV according to patient size, radiation dose was kept as low as reason ably achievable to obtain optimal diagnostic quality images. DICOM format image data is available el ectronically for review and comparison. FINDINGS: Pulmonary Arteries: No filling defects are seen in the pulmonary arteries out to the subsegmental ve ssels. The left and right pulmonary arteries are normal in diameter. Lung: Irregular 0.3 cm mass identified within the right lower lobe. There is airspace consolidation and interstitial thickening with groundglass opacity identified within the adjacent right lower lobe as well as within the right middle lobe. The remainder of the lungs are clear. Effusion: None. Mediastinum: No evidence of mediastinal or hilar adenopathy. Other: The axilla is unremarkable. CONCLUSION: 1. No right lower lobe carcinoma. The interstitial thickening and consolidation involving the right lower lobe and right middle lobe may represent lymphangitic spread of disease versus superimposed inf ectious process. 2. No evidence of PE. Electronically signed by: Lisa Guzman MD 04/02/2018 9:16 AM EDT
[2018-04-02 09:30] LABS: CKMB Percent 1.6 % (0.0-4.0); Creatine Kinase MB 3.1 ng/mL (0.5-3.6)
--- NOTE | 2018-04-02 11:56 | P.HP ---
History of Present Illness Primary Care Physician: Olga Inman MD Chief Complaint: Shortness of breath and difficulty breathing History of Present Illness: 82-year-old female with known history of hypertension, chronic atrial fibrillation, chronic obstructive pulmonary disease, lung cancer, colon cancer who presented to the hospital due to shortness of breath and dyspnea. Patient states that her last 6 weeks she has had shortness of breath, dyspnea. She is undergoing treatment for lung cancer by Dr. Mohan (radiation oncologist), Dr. Lamar (oncologist). Patient is to undergo an radiation treatment. Patient states that she is not a candidate for chemotherapy. Over the last 2 days she has been experiencing increased shortness of breath, dyspnea, mucus production. Because that reason she came to emergency department for evaluation. Respiratory mclain patient had both the unremarkable workup. Patient had workup incidentally patient was found to have significant hyponatremia. Patient was asymptomatic for any hyponatremia. Because of the significant level patient will require hospitalization for further management. Upon evaluating the patient she is resting comfortably on room air with good O2 saturations. Full discussion with her condition and she does understand. Patient is very eager to go home in the next day or 2. - Diagnosis (1) Hyponatremia Inpatient Certification: I certify that the inpatient services were ordered in accordance with Medicare regulations governing the order. This includes certification that hospital inpatient services are reasonable and necessary and in the case of services not specified as inpatient-only under 42 CFR 419.22(n), that they are appropriately provided as inpatient services in accordance to with the 2-midnight benchmark under 43 CFR 412.3(e) Estimated Total Length of Stay (Days): 3 Plans for Post Hospital Care: Not yet determined Review of Systems All other systems reviewed negative except as stated in HPI Respiratory: Reports cough, Reports excessive phlegm production, Reports shortness of breath PMFSH - History History Provided By: Patient, Medical Record - Medical History Medical History: Medical History (Last Updated 04/02/18 @ 11:56 by DANIEL Fischer) Chronic atrial fibrillation Chronic obstructive pulmonary disease History of colon cancer Hypertension Lung cancer Transient ischemic attack - Surgical History Surgical History: Surgical History (Last Updated 04/02/18 @ 11:56 by DANIEL Fischer) History of cataract surgery History of colonoscopy History of hernia repair History of hysterectomy History of loop recorder History of partial colectomy History of tonsillectomy - Family History Family History: Family History (Last Updated 04/02/18 @ 12:27 by DANIEL Fischer) Sister History of lung cancer - Tobacco History Smoking Status: Former smoker Tobacco Type: Cigarettes - Alcohol History How Often Do You Have a Drink Containing Alcohol: Never - Travel History Recent Travel in the [place] Within the Last 8 Weeks: No Recent Travel Out of the Country Within the Last 8 Weeks: No - Immunization History Tetanus Immunization: <5 Years Medications and Allergies Active Medications: Active Medications Acetaminophen (Tylenol) 650 mg PO Q4H PRN PRN Reason: Temp > 100.4 Apixaban (Eliquis) 2.5 mg PO BID [facility] Last Admin: 04/02/18 11:49 Dose: 2.5 mg Atorvastatin Calcium (Lipitor) 20 mg PO DAILY [facility] Last Admin: 04/02/18 11:49 Dose: 20 mg Senna/Docusate Sodium (Aide-Colace) 1 tab PO BID [facility] Sodium Chloride (Ns Flush) 2 ml IV.FLUSH PRN PRN PRN Reason: FLUSH AFTER USING IV ACCESS Allergies Allergy/AdvReac Type Severity Reaction Status Date / Time No Known Allergies Allergy Unverified 04/02/18 08:00 Home Medications Medication Instructions Recorded Confirmed Type alprazolam [Xanax] 0.5 mg PO DAILY PRN 04/02/18 04/02/18 History apixaban [Eliquis] 2.5 mg PO DAILY 04/02/18 04/03/18 History atorvastatin 20 mg PO DAILY 04/02/18 04/02/18 History citalopram 10 mg PO DAILY 04/02/18 04/02/18 History glycopyrrolate-formoterol [Bevespi 2 puff INHALATION QAM AND QPM 04/02/18 History Aerosphere] hydrochlorothiazide 25 mg PO DAILY 04/02/18 04/02/18 History venlafaxine [Effexor XR] 37.5 mg PO DAILY 04/02/18 04/02/18 History Exam Vital signs: Vital Signs 04/02/18 05:14 04/02/18 05:30 04/02/18 05:51 Temperature 99.2 F Pulse Rate 99 H 99 H 94 H Respiratory Rate 18 20 Blood Pressure 146/66 H Pulse Oximetry 87 L 93 L 04/02/18 06:25 04/02/18 06:27 04/02/18 07:10 Temperature 98.5 F Pulse Rate 93 H 88 Respiratory Rate 20 18 Blood Pressure 149/76 H 105/54 L Pulse Oximetry 93 L 94 L 96 04/02/18 07:15 04/02/18 09:04 04/02/18 09:10 Temperature Pulse Rate 88 Respiratory Rate 18 Blood Pressure 142/62 H Pulse Oximetry 96 96 96 04/02/18 09:33 Temperature Pulse Rate Respiratory Rate Blood Pressure 151/71 H Pulse Oximetry Intake & Output 04/01/18 04/02/18 04/02/18 18:59 06:59 18:59 Intake Total 100 / 100 Balance 100 / 100 Weight 68.3 kg Intake: IV 100 / 100 KCl 10 mEq Premix Inj 10 meq In 100 / 100 100 ml @ 100 mls/hr IV.SIG ONCE ONE Rx#:[id number] Narrative: GENERAL: Well-developed, well-nourished, in no acute distress. alert and orientated HEENT: Head is normocephalic without any lesions or masses noted. Facial features are symmetric. Eyes: Pupils equal round reactive to light. Extraocular muscles are intact. Conjunctivae were clear. Oropharyngeal: Pharynx without any erythema edema. Tongue is midline without deviation. Buccal mucosa is moist without any masses or lesions NECK: Supple without any masses. Trachea midline no deviation. No JVD, no bruits are appreciated CARDIAC: Regular rhythm, regular rate. S1/S2 are heard. No murmurs gallops or rubs. LUNGS: Diminished breath sounds noted bilaterally no wheeze, rhonchi or rales. No use of accessory muscles on inspiration or expiration. ABDOMEN: Soft, nontender. Nondistended. Bowel sounds heard in all 4 quadrants. No organomegaly or masses. Negative rebound, negative guarding EXTREMITIES: No edema, pulses are equal bilaterally. No cyanosis or clubbing NEUROLOGY: Mood and affect appear appropriate. Cranial nerves II through XII grossly intact. Muscle strength 5/5 in upper and lower extremities bilaterally. Deep tendon reflexes are 2+ in upper and lower extremities bilaterally. Results - Labs CBC & Chem 7: 04/03/18 06:00 04/03/18 06:00 Labs: Laboratory Results - last 24 hr 04/02/18 04/02/18 04/02/18 06:05 06:05 06:05 CBC w Diff Auto diff final WBC 6.7 RBC 3.47 L Hgb 11.1 L Hct 31.4 L MCV 90.5 MCH 31.9 MCHC 35.2 RDW 15.9 Plt Count 231 MPV 6.6 L Neut % (Auto) 64.6 Lymph % (Auto) 14.4 Hopkins % (Auto) 17.5 H Eos % (Auto) 3.4 Baso % (Auto) 0.1 Neut # (Auto) 4.3 Lymph # (Auto) 1.0 Hopkins # (Auto) 1.2 H Eos # (Auto) 0.2 Baso # (Auto) 0.0 WBC Differential . Differential Comment . PT 9.5 L INR 0.9 APTT 26.8 Sodium 120 L* Potassium 3.2 L Chloride 80 L Carbon Dioxide 30.2 Anion Gap 10 BUN 8 Creatinine 0.55 Estimated GFR Greater than 89 Random Glucose 123 H Lactic Acid Calcium 8.1 L Magnesium 1.5 Total Bilirubin 0.7 AST 22 ALT 19 Alkaline Phosphatase 91 Total Creatine Kinase 197 H CK-MB (CK-2) 3.1 CK-MB (CK-2) % 1.6 Troponin I Less than 0.02 L Total Protein 6.9 Albumin 2.9 L Lipase 65 L Ur Collection Type Urine Color Urine Clarity Urine pH Ur Specific Weld Urine Protein Urine Glucose (UA) Urine Ketones Urine Occult Blood Urine Nitrate Urine Bilirubin Urine Urobilinogen Ur Leukocyte Esterase Urine RBC Ur Squamous Epith Cells Micro UA Comment Ur Microscopic Review Urine Culture Comments 04/02/18 04/02/18 06:05 08:21 CBC w Diff WBC RBC Hgb Hct MCV MCH MCHC RDW Plt Count MPV Neut % (Auto) Lymph % (Auto) Hopkins % (Auto) Eos % (Auto) Baso % (Auto) Neut # (Auto) Lymph # (Auto) Hopkins # (Auto) Eos # (Auto) Baso # (Auto) WBC Differential Differential Comment PT INR APTT Sodium Potassium Chloride Carbon Dioxide Anion Gap BUN Creatinine Estimated GFR Random Glucose Lactic Acid 1.0 Calcium Magnesium Total Bilirubin AST ALT Alkaline Phosphatase Total Creatine Kinase CK-MB (CK-2) CK-MB (CK-2) % Troponin I Total Protein Albumin Lipase Ur Collection Type Clean catch Urine Color Yellow Urine Clarity Clear Urine pH 7.0 Ur Specific Weld 1.010 Urine Protein Negative Urine Glucose (UA) Negative Urine Ketones Trace H Urine Occult Blood Trace Urine Nitrate Negative Urine Bilirubin Negative Urine Urobilinogen 0.2 Ur Leukocyte Esterase Trace H Urine RBC 0-3 Ur Squamous Epith Cells 0-5 Micro UA Comment Culture not ind Ur Microscopic Review Microscopic reviewed Urine Culture Comments Culture not ind - Imaging Impressions Chest X-Ray 04/02/18 05:24 CONCLUSION: No infiltrates seen. Hyperaerated lungs. Abdomen/Pelvis CT 04/02/18 06:21 CONCLUSION: 1. Irregular mass identified within the right lower lobe consistent with the patient's known carcinoma. Interstitial thickening identified within the right lower lobe and right middle lobe may represent lymphangitic spread of disease versus superimposed infectious process. 2. No evidence of inflammatory process within the abdomen or pelvis. No evidence of metastatic disease within the abdomen or pelvis. Chest CTA 04/02/18 06:21 CONCLUSION: 1. No right lower lobe carcinoma. The interstitial thickening and consolidation involving the right lower lobe and right middle lobe may represent lymphangitic spread of disease versus superimposed infectious process. 2. No evidence of PE. Caprini VTE Risk Assessment Caprini VTE Risk Assessment: Moderate/High Risk (score >= 2) Caprini Risk Assessment Model: Point Value = 1 Point Value = 2 Point Value = 3 Point Value = 5 Age 41-60 Minor surgery BMI > 25 kg/m2 Swollen legs Varicose veins or History of unexplained or recurrent spontaneous Oral contraceptives or hormone replacement Sepsis (< 1 month) Serious lung disease, including pneumonia (< 1 month) Abnormal pulmonary function Acute myocardial infarction Congestive heart failure (< 1 month) History of inflammatory bowel disease Medical patient at bed rest Age 61-74 Arthroscopic surgery Major open surgery (> 45 min) Laparoscopic surgery (> 45 min) Malignancy Confined to bed (> 72 hours) Immobilizing plaster cast Central venous access Age >= 75 History of VTE Family history of VTE Factor V Leiden Prothrombin [id number] Lupus anticoagulant Anticardiolipin antibodies Elevated serum homocysteine Heparin-induced thrombocytopenia Other congenital or acquired thrombophilia Stroke (< 1 month) Elective arthroplasty Hip, pelvis, or leg fracture Acute spinal cord injury (< 1 month) Prophylaxis Regimen: Total Risk Factor Score Risk Level Prophylaxis Regimen 0-1 Low Early ambulation 2 Moderate Order ONE of the following: *Sequential Compression Device (SCD) *Heparin 5000 units SQ BID 3-4 Higher Order ONE of the following medications: *Heparin 5000 units SQ TID *Enoxaparin/Lovenox 40 mg SQ daily (WT < 150 kg, CrCl > 30 mL/min) *Enoxaparin/Lovenox 30 mg SQ daily (WT < 150 kg, CrCl > 10-29 mL/min) *Enoxaparin/Lovenox 30 mg SQ BID (WT < 150 kg, CrCl > 30 mL/min) AND/OR *Sequential Compression Device (SCD) 5 or more Highest Order ONE of the following medications: *Heparin 5000 units SQ TID (Preferred with Epidurals) *Enoxaparin/Lovenox 40 mg SQ daily (WT < 150 kg, CrCl > 30 mL/min) *Enoxaparin/Lovenox 30 mg SQ daily (WT < 150 kg, CrCl > 10-29 mL/min) *Enoxaparin/Lovenox 30 mg SQ BID (WT < 150 kg, CrCl > 30 mL/min) AND *Sequential Compression Device (SCD) Assessment and Plan - Assessment (1) Hyponatremia Code(s): E87.1 - Hypo-osmolality and hyponatremia Status: Acute - Plan Hyponatremia -Likely multifactorial with patient on HCTZ diuretic, SSRI, SNRI, lung cancer -We will do further evaluation to include urine osmolality, serum osmolality, urine sodium, TSH -We will hold HCTZ -We will place patient on fluid restriction 1500 mL's daily -Continue to follow sodium level Lung cancer -Patient is undergoing outpatient management with Dr. Lamar, Dr. Mohan -CT scan does show right lower, with right lower and right middle lobe interstitial thickening -Patient will continue outpatient follow-up Chronic obstructive pulmonary disease -Continue O2 sat mentation maintain O2 sats greater than 92% -Duo nebs Chronic atrial fibrillation -Continue home medications -Patient anticoagulated with Eliquis Anxiety -Continue home medications DVT prevention -Patient is on Eliquis
--- NOTE | 2018-04-02 12:43 | ECG ---
Date Performed: 04/02/2018 Time Performed: 05:52:05 PTAGE: 82 years EKG: Sinus rhythm WITH OCCASIONAL SUPRAVENTRICULAR PREMATURE COMPLEXES Since previous tracing, no significant change n oted BORDERLINE ECG PREVIOUS TRACING : 10/07/2017 06.57 DOCTOR: Jose Rafael Mckinley Interpretating Date/Time 04/02/2018 12:40:48
[2018-04-02 16:38] LABS: Anion Gap 8 meq/L (5-15); Blood Urea Nitrogen 8 mg/dL (7-18); Calcium 8.3 mg/dL (8.5-10.1); Carbon Dioxide 30.6 meq/L (21.0-32.0); Chloride 84 meq/L (98-107); Glomerular Filtration Rate Greater Than 89 mL/min (>89); Glucose,Random 108 mg/dL (74-106); Potassium 3.7 meq/L (3.5-5.1)
[2018-04-02 16:40] LABS: Sodium 123 meq/L (136-145)
[2018-04-02] MEDS: ALPRAZolam 0.5 MG Tablet PO PRN (19:11)
[2018-04-02] MEDS: Acetaminophen 325 MG Tablet PO PRN (20:21)
[2018-04-02] MEDS: Senna/Docusate Sodium 8.6/50 MG Tablet PO SCH (20:21)
[2018-04-03 06:44] LABS: Alanine Aminotransferase 17 U/L (10-53); Albumin 2.7 g/dL (3.4-5.0); Alkaline Phosphatase 84 U/L (45-117); Anion Gap 8 meq/L (5-15); Aspartate Aminotransferase 23 U/L (15-37); Blood Urea Nitrogen 6 mg/dL (7-18); Calcium 8.1 mg/dL (8.5-10.1); Carbon Dioxide 31.4 meq/L (21.0-32.0); Chloride 85 meq/L (98-107); Glomerular Filtration Rate Greater Than 89 mL/min (>89); Glucose,Random 93 mg/dL (74-106); Potassium 3.6 meq/L (3.5-5.1); Total Protein 6.8 g/dL (6.4-8.2)
[2018-04-03 06:47] LABS: Sodium 124 meq/L (136-145)
[2018-04-03 07:53] LABS: Baso % (Auto) 0.3 % (0.0-2.0); Eos # (Auto) 0.4 th/mm3 (0.0-0.4); Hematocrit 33.3 % (35.0-46.0); Hemoglobin 11.5 gm/dL (11.6-15.3); Lymph # (Auto) 0.7 th/mm3 (1.0-4.8); Lymph % (Auto) 11.4 % (9.0-44.0); Mean Corpuscular HGB Conc 34.5 % (32.0-36.0); Mean Corpuscular Hemoglobin 31.8 pg (27.0-34.0); Mean Corpuscular Volume 92.2 fL (80.0-100.0); Mean Platelet Volume 6.7 fL (7.0-11.0); Mono # (Auto) 1.4 th/mm3 (0.0-0.9); Mono % (Auto) 21.1 % (0.0-8.0); Neut # (Auto) 3.9 th/mm3 (1.8-7.7); Neut % (Auto) 61.2 % (16.0-70.0); Platelet Count 234 th/mm3 (150-450); Red Blood Count 3.61 mil/mm3 (4.00-5.30); Red Cell Distribution Width 15.8 % (11.6-17.2); White Blood Count 6.4 th/mm3 (4.0-11.0)
[2018-04-03 08:42] LABS: Eosinophils 6 % (0-4); Lymphocytes 8 % (9-44); Monocytes 8 % (0-8)
[2018-04-03] MEDS: Senna/Docusate Sodium 8.6/50 MG Tablet PO SCH ×2 (08:54→20:02)
--- NOTE | 2018-04-03 09:33 | P.PN ---
Subjective Interval history: 82-year-old female who is seen and examined today for follow-up on hyponatremia. Patient just received a nebulizer treatment, however she not like the way it made her feel. He states that he use an inhaler at home but does not cause that symptom. Vital signs remained stable. He remains afebrile Physical Exam Vital signs: Vital Signs 04/02/18 09:33 04/02/18 10:35 04/02/18 10:38 Temperature 98.7 F Pulse Rate 86 Respiratory Rate 23 Blood Pressure 151/71 H 147/66 H 147/66 H Pulse Oximetry 04/02/18 12:41 04/02/18 13:55 04/02/18 16:00 Temperature 98.7 F 98.6 F Pulse Rate 90 91 H Respiratory Rate 25 H 21 Blood Pressure 112/52 L 123/57 L Pulse Oximetry 95 96 97 04/02/18 19:13 04/02/18 19:51 04/02/18 20:00 Temperature 100.4 F H Pulse Rate 94 H 93 H 96 H Respiratory Rate 21 24 Blood Pressure 142/84 H Pulse Oximetry 98 97 04/02/18 21:47 04/02/18 22:11 04/03/18 00:00 Temperature 99.1 F Pulse Rate 94 H 80 Respiratory Rate 24 24 Blood Pressure 115/57 L 119/55 L Pulse Oximetry 95 94 L 96 04/03/18 01:00 04/03/18 02:00 04/03/18 04:00 Temperature 99 F Pulse Rate 76 74 76 Respiratory Rate 21 19 20 Blood Pressure 143/61 H Pulse Oximetry 95 95 97 04/03/18 05:42 04/03/18 07:00 04/03/18 07:15 Temperature Pulse Rate 94 H 92 H Respiratory Rate 22 23 Blood Pressure 128/62 Pulse Oximetry 96 94 L 04/03/18 08:00 Temperature Pulse Rate Respiratory Rate Blood Pressure Pulse Oximetry 97 Intake & Output 04/02/18 04/03/18 04/03/18 18:59 06:59 18:59 Intake Total 100 / 100 420 / 420 Balance 100 / 100 420 / 420 Weight 66 kg Intake: IV 100 / 100 KCl 10 mEq Premix Inj 10 meq In 100 / 100 100 ml @ 100 mls/hr IV.SIG ONCE ONE Rx#:[id number] Oral 420 / 420 Other: # Voids 2 Date of Last Bowel Movement 04/02/18 04/02/18 04/03/18 # Bowel Movements 1 Weight On Admission 66 kg Narrative: GENERAL: Well-developed, well-nourished, in no acute distress. alert and orientated HEENT: Head is normocephalic without any lesions or masses noted. Facial features are symmetric. Eyes: Extraocular muscles are intact. Conjunctivae were clear. NECK: Supple without any masses. Trachea midline no deviation. No JVD, CARDIAC: Regular rhythm, regular rate. S1/S2 are heard. No murmurs gallops or rubs. LUNGS: Bilateral wheeze noted, no honchi or rales. No use of accessory muscles on inspiration or expiration. ABDOMEN: Soft, nontender. Nondistended. Bowel sounds heard in all 4 quadrants. No organomegaly or masses. Negative rebound, negative guarding EXTREMITIES: No edema, pulses are equal bilaterally. No cyanosis or clubbing NEUROLOGY: Mood and affect appear appropriate. Cranial nerves II through XII grossly intact. Moving all extremities, speech is clear Results - Labs CBC & Chem 7: 04/03/18 06:00 04/03/18 06:00 Laboratory Results - last 24 hr 04/02/18 04/02/18 04/02/18 06:05 06:05 08:21 CBC w Diff WBC RBC Hgb Hct MCV MCH MCHC RDW Plt Count MPV Neut % (Auto) Lymph % (Auto) Barnes % (Auto) Eos % (Auto) Baso % (Auto) Neut # (Auto) Lymph # (Auto) Barnes # (Auto) Eos # (Auto) Baso # (Auto) WBC Differential Seg Neuts % (Manual) Band Neuts % (Manual) Lymphocytes % (Manual) Monocytes % (Manual) Eosinophils % (Manual) Abs Neuts (Manual) Differential Comment Sodium Potassium Chloride Carbon Dioxide Anion Gap BUN Creatinine Estimated GFR Random Glucose Osmolality Calcium Total Bilirubin AST ALT Alkaline Phosphatase CK-MB (CK-2) 3.1 CK-MB (CK-2) % 1.6 Total Protein Albumin TSH 1.300 Urine Osmolality 483 Ur Random Sodium 04/02/18 04/02/18 04/03/18 08:21 15:24 06:00 CBC w Diff Slide review pending WBC 6.4 RBC 3.61 L Hgb 11.5 L Hct 33.3 L MCV 92.2 MCH 31.8 MCHC 34.5 RDW 15.8 Plt Count 234 MPV 6.7 L Neut % (Auto) 61.2 Lymph % (Auto) 11.4 Barnes % (Auto) 21.1 H Eos % (Auto) 6.0 H Baso % (Auto) 0.3 Neut # (Auto) 3.9 Lymph # (Auto) 0.7 L Barnes # (Auto) 1.4 H Eos # (Auto) 0.4 Baso # (Auto) 0.0 WBC Differential Manual diff final Seg Neuts % (Manual) 76 H Band Neuts % (Manual) 2 Lymphocytes % (Manual) 8 L Monocytes % (Manual) 8 Eosinophils % (Manual) 6 H Abs Neuts (Manual) 5.0 Differential Comment . Sodium 123 L* Potassium 3.7 Chloride 84 L Carbon Dioxide 30.6 Anion Gap 8 BUN 8 Creatinine 0.60 Estimated GFR Greater than 89 Random Glucose 108 H Osmolality 262 L Calcium 8.3 L Total Bilirubin AST ALT Alkaline Phosphatase CK-MB (CK-2) CK-MB (CK-2) % Total Protein Albumin TSH Urine Osmolality Ur Random Sodium 79 04/03/18 06:00 CBC w Diff WBC RBC Hgb Hct MCV MCH MCHC RDW Plt Count MPV Neut % (Auto) Lymph % (Auto) Barnes % (Auto) Eos % (Auto) Baso % (Auto) Neut # (Auto) Lymph # (Auto) Barnes # (Auto) Eos # (Auto) Baso # (Auto) WBC Differential Seg Neuts % (Manual) Band Neuts % (Manual) Lymphocytes % (Manual) Monocytes % (Manual) Eosinophils % (Manual) Abs Neuts (Manual) Differential Comment Sodium 124 L* Potassium 3.6 Chloride 85 L Carbon Dioxide 31.4 Anion Gap 8 BUN 6 L Creatinine 0.50 Estimated GFR Greater than 89 Random Glucose 93 Osmolality Calcium 8.1 L Total Bilirubin 0.5 AST 23 ALT 17 Alkaline Phosphatase 84 CK-MB (CK-2) CK-MB (CK-2) % Total Protein 6.8 Albumin 2.7 L TSH Urine Osmolality Ur Random Sodium Assessment and Plan - Assessment (1) Hyponatremia Code(s): E87.1 - Hypo-osmolality and hyponatremia Status: Acute - Plan Hyponatremia -Likely multifactorial with patient on HCTZ diuretic, SSRI, SNRI, lung cancer -Serum osmolality 262, urine osmolality 483, urine sodium 79 -TSH is normal -Continue to hold HCTZ, SSRI, SNRI -Continue fluid restriction 1500 mL's daily -Continue to follow sodium level Lung cancer -Patient is undergoing outpatient management with Dr. Lamar, Dr. Mohan -CT scan does show right lower, with right lower and right middle lobe interstitial thickening -Patient will continue outpatient follow-up Chronic obstructive pulmonary disease -Continue O2 sat mentation maintain O2 sats greater than 92% -Duo nebs Chronic atrial fibrillation -Continue home medications -Patient anticoagulated with Eliquis Anxiety -Xanax was continued DVT prevention -Patient is on Eliquis
[2018-04-03] MEDS: Acetaminophen 325 MG Tablet PO PRN (18:45)
[2018-04-03] MEDS: Furosemide 20 MG Tablet PO SCH (18:51)
[2018-04-03] MEDS: Sodium Chloride 1 GM Tablet PO SCH (20:02)
[2018-04-04 07:03] LABS: Anion Gap 17 meq/L (5-15); Blood Urea Nitrogen 10 mg/dL (7-18); Carbon Dioxide 29.7 meq/L (21.0-32.0); Chloride 96 meq/L (98-107); Glomerular Filtration Rate Greater Than 89 mL/min (>89); Glucose,Random 95 mg/dL (74-106); Potassium 3.9 meq/L (3.5-5.1); Sodium 143 meq/L (136-145)
[2018-04-04] MEDS: Senna/Docusate Sodium 8.6/50 MG Tablet PO SCH ×2 (08:18→20:07)
[2018-04-04] MEDS: Furosemide 20 MG Tablet PO SCH ×2 (08:21→18:24)
[2018-04-04] MEDS: Sodium Chloride 1 GM Tablet PO SCH (09:18)
--- NOTE | 2018-04-04 10:18 | P.PN ---
Subjective Interval history: 82-year-old female who is seen and examined today for follow-up on hyponatremia. Patient sitting in chair and eating breakfast without any complaints. She appears to be doing much better than yesterday. Vital signs are stable. Patient remains afebrile. Physical Exam Vital signs: Vital Signs 04/03/18 11:16 04/03/18 15:39 04/03/18 20:00 Temperature 98.9 F 97.9 F 98.4 F Pulse Rate 86 100 H 81 Respiratory Rate 30 H 30 H 14 Blood Pressure 129/85 148/62 H 131/75 Pulse Oximetry 96 91 L 96 04/03/18 21:20 04/04/18 00:00 04/04/18 04:00 Temperature 97.3 F L 98.1 F Pulse Rate 72 84 Respiratory Rate 20 22 Blood Pressure 116/71 146/67 H Pulse Oximetry 95 96 97 04/04/18 07:00 04/04/18 08:00 04/04/18 09:00 Temperature 98.4 F Pulse Rate 82 94 H 96 H Respiratory Rate 20 25 H Blood Pressure Pulse Oximetry 91 L 94 L Intake & Output 04/03/18 04/04/18 04/04/18 18:59 06:59 18:59 Weight 67.1 kg Other: # Voids 3 Date of Last Bowel Movement 04/03/18 04/03/18 Narrative: GENERAL: Well-developed, well-nourished, in no acute distress. alert and orientated HEENT: Head is normocephalic without any lesions or masses noted. Facial features are symmetric. Eyes: Extraocular muscles are intact. Conjunctivae were clear. NECK: Supple without any masses. Trachea midline no deviation. No JVD, CARDIAC: Regular rhythm, regular rate. S1/S2 are heard. No murmurs gallops or rubs. LUNGS: Bilateral wheeze noted, no honchi or rales. No use of accessory muscles on inspiration or expiration. ABDOMEN: Soft, nontender. Nondistended. Bowel sounds heard in all 4 quadrants. No organomegaly or masses. Negative rebound, negative guarding EXTREMITIES: No edema, pulses are equal bilaterally. No cyanosis or clubbing NEUROLOGY: Mood and affect appear appropriate. Cranial nerves II through XII grossly intact. Moving all extremities, speech is clear Results - Labs CBC & Chem 7: 04/03/18 06:00 04/04/18 07:30 Laboratory Results - last 24 hr 04/03/18 04/03/18 04/04/18 12:00 18:00 01:10 Sodium 122 L* 120 L* 123 L* Potassium Chloride Carbon Dioxide Anion Gap BUN Creatinine Estimated GFR Random Glucose Calcium 04/04/18 04/04/18 06:12 07:30 Sodium 143 D 123 L* D Potassium 3.9 Chloride 96 L D Carbon Dioxide 29.7 Anion Gap 17 H BUN 10 Creatinine 0.48 L Estimated GFR Greater than 89 Random Glucose 95 Calcium 8.0 L Microbiology 04/02/18 06:10 Blood - Peripheral Aerobic Blood Culture - Preliminary No growth in 1 day 04/02/18 06:10 Blood - Peripheral Anaerobic Blood Culture - Preliminary No growth in 1 day 04/02/18 06:05 Blood - Peripheral Aerobic Blood Culture - Preliminary No growth in 1 day 04/02/18 06:05 Blood - Peripheral Anaerobic Blood Culture - Preliminary No growth in 1 day Assessment and Plan - Assessment (1) Hyponatremia Code(s): E87.1 - Hypo-osmolality and hyponatremia Status: Acute - Plan Hyponatremia, persistent -Likely multifactorial with patient on HCTZ diuretic, SSRI, SNRI, lung cancer -Serum osmolality 262, urine osmolality 483, urine sodium 79 -TSH is normal -Continue to hold HCTZ, SSRI, SNRI -Continue fluid restriction 1000 mL's daily -Sodium chloride 1 g daily -Lasix 20 mg p.o. twice daily -Continue to follow sodium level Lung cancer -Patient is undergoing outpatient management with Dr. Lamar, Dr. Mohan -CT scan does show right lower, with right lower and right middle lobe interstitial thickening -Patient will continue outpatient follow-up -Family requesting consult with patient's oncologist Chronic obstructive pulmonary disease -Continue O2 sat mentation maintain O2 sats greater than 92% -Duo nebs Chronic atrial fibrillation -Continue home medications -Patient anticoagulated with Eliquis Anxiety -Xanax was continued DVT prevention -Patient is on Eliquis
[2018-04-04] MEDS: ALPRAZolam 0.5 MG Tablet PO PRN ×2 (18:24→22:53)
--- NOTE | 2018-04-04 20:17 | MB ---
cc: Kathy Kitchen MD, Michael J DO DATE: 04/04/2018 REFERRING PHYSICIAN: Tiago Gonzalez MD CHIEF COMPLAINT: Dr. Gonzalez requests a consultation for Mrs. 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 HISTORY OF PRESENT ILLNESS: Mrs. Tilley is an 82-year-old woman, well known patient to my partner, Dr. Beto Lamar. She has a history of severe COPD and emphysema. She has a [id number] smoking history, quit in her 50s. Her other medical problems include hypertension, hyperlipidemia, atrial fibrillation for which she was on Eliquis. Imaging study revealed a 3.1 cm left lower lobe lung mass. The biopsy revealed atypical cells, highly suspicious for non-small cell lung cancer. 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 She is frail with comorbidities and is not a candidate for concurrent chemotherapy and radiation. She was seen by Dr. Mohan for palliative radiation therapy. She tolerated radiation treatment well. She completed it prior to coming in. She remained independent at home. On the day of the admission, she woke up acutely short of breath and presented to the emergency room. During her hospitalization, she was found to have hyponatremia. However, review of the electronic medical record shows hyponatremia dating back to 09/2014. On 04/16/2017, her sodium was 131. Review of Dr. Lamar's notes reveal that she was hyponatremic even in 11/2017 when she was diagnosed with her localized non-small cell lung cancer. On admission, her sodium was 120. She was fluid restricted, given hypertonic saline, her sodium increased to 124. Hematology/Oncology is consulted to assist in management. Mrs. Tilley denies any significant change in symptoms. She is anxious about matters at home. She is eager to go home. Hematology/oncology is consulted for her non-small cell lung cancer. The patient was seen with 2 daughters at the bedside. They report her independent living, even during the radiation therapy. She had acute decompensation. She feels better. We reviewed the CT scan images. CT scan of the chest shows a treated right lower lung lesion. The CT scan of the abdomen did not reveal any site of distant metastatic disease. LABORATORY DATA: Laboratory evaluation revealed a normocytic anemia. Coagulation profile is normal. Her renal function is normal. She is hyponatremic. PAST MEDICAL HISTORY: As described above, arthritis, anxiety, COPD, emphysema, hypertension, atrial fibrillation, osteoarthritis, osteoporosis, TIA. PAST SURGICAL HISTORY: Cataract surgery, cholecystectomy, colon resection, hernia repair, hysterectomy, [employer] loop recorder tonsillectomy, colonoscopy, a CT-guided biopsy. FAMILY HISTORY: No significant family history of cancer. SOCIAL HISTORY: She is . She quit smoking 26 years ago. She has a [id number] smoking history. She drinks occasionally. She denies any illicit drug use. ALLERGIES: NO KNOWN DRUG ALLERGIES. CURRENT MEDICATIONS: Include: 1. Tylenol. 2. Ventolin. 3. Xanax. 4. Eliquis. 5. Lipitor. 6. Lasix. 7. Aide-Colace. PHYSICAL EXAMINATION: VITAL SIGNS: Afebrile, heart rate 98, respiratory rate 30, blood pressure 119/56, saturation 91%. GENERAL: Ms. Tilley is a well-developed, elderly woman with poor vision. HEENT: Her pupils are small, but reactive. Oropharynx is dry. NECK: Supple. LUNGS: With diminished breath sounds in the right base. There are mild hyperpigmented erythematous changes in her right back. There is a lipoma. LUNGS: Clear. Diminished breath sounds throughout. CARDIOVASCULAR: Reveals a rate controlled rhythm. ABDOMEN: Benign. EXTREMITIES: Lower extremities, no edema. LABORATORY DATA: As described above. ASSESSMENT AND PLAN: Mrs. Tilley is an 82-year-old woman with multiple medical problems. She is diagnosed with a locally advanced non-small cell lung cancer. She was treated palliatively with radiation to the primary lesion. She has a concurrent hyponatremia at the time of the diagnosis. She has known paraneoplastic syndrome. The paraneoplastic syndrome did not respond to treatment of the primary lung lesion. She remains hyponatremic. She appears to be worse hyponatremic than her initial presentation. She came in to the emergency room with shortness of breath. She feels better after optimizing her respiratory treatment. Her hyponatremia was treated, however, remains low. I discussed with Mrs. Tilley and her daughters present at the consultation that a paraneoplastic syndrome is likely to persist until definitive treatment of her underlying non-small cell lung cancer. Previously discussed with her is the option of immunotherapy to start. I recommend that they pursue this with Dr. Nolan, who is taking over her care. We discussed in general terms of treatment with immunotherapy. Underlying treatment that would be successful in alleviating the hyponatremia would be to treat the underlying lung cancer. We may accept the chronic hyponatremia as it is not significantly changed from her baseline. It is not producing her symptoms. She is eager to go home and is willing to continue the fluid restriction and salt tablets on an outpatient basis. We will continue to follow peripherally. We will coordinate followup outpatient to proceed with treatment for the hyponatremia by treating underlying lung cancer systemically. MD DESMOND Sargent/martita , 07:12 PM , 07:27 PM
--- NOTE | 2018-04-05 07:37 | P.PN ---
Subjective Interval history: 82-year-old female who is seen and examined today for follow-up on hyponatremia. Patient's levels are coming up very slowly. Patient did have another episode of difficulty breathing throughout the night which did improve after the use of her inhaler. Vital signs are stable. Patient remains afebrile. Physical Exam Vital signs: Vital Signs 04/04/18 08:00 04/04/18 09:00 04/04/18 09:30 Temperature 98.4 F Pulse Rate 94 H 92 H Respiratory Rate 25 H 25 H Blood Pressure Pulse Oximetry 94 L 94 L 93 L 04/04/18 10:00 04/04/18 11:02 04/04/18 12:00 Temperature 97.9 F Pulse Rate 82 100 H 90 Respiratory Rate 23 0 L 24 Blood Pressure 119/56 L Pulse Oximetry 97 94 L 95 04/04/18 12:17 04/04/18 13:00 04/04/18 14:00 Temperature Pulse Rate 96 H 92 H 92 H Respiratory Rate 32 H 28 H 27 H Blood Pressure 119/56 L Pulse Oximetry 94 L 96 95 04/04/18 15:00 04/04/18 16:00 04/04/18 20:00 Temperature 99.6 F Pulse Rate 88 98 H 95 H Respiratory Rate 28 H 30 H 21 Blood Pressure 125/62 Pulse Oximetry 95 91 L 97 04/04/18 22:56 04/05/18 00:00 04/05/18 04:00 Temperature 97.2 F L 97.5 F L Pulse Rate 89 80 Respiratory Rate 20 20 Blood Pressure 147/60 H 128/53 L Pulse Oximetry 96 94 L 98 Intake & Output 04/04/18 04/05/18 04/05/18 18:59 06:59 18:59 Intake Total 720 / 720 Output Total 600 / 600 550 / 550 Balance 120 / 120 -550 / -550 Weight 66.7 kg Intake: Oral 720 / 720 Output: Urine 600 / 600 550 / 550 Other: # Voids 3 3 Date of Last Bowel Movement 04/04/18 Narrative: GENERAL: Well-developed, well-nourished, in no acute distress. alert and orientated HEENT: Head is normocephalic without any lesions or masses noted. Facial features are symmetric. Eyes: Extraocular muscles are intact. Conjunctivae were clear. NECK: Supple without any masses. Trachea midline no deviation. No JVD, CARDIAC: Regular rhythm, regular rate. S1/S2 are heard. No murmurs gallops or rubs. LUNGS: Bilateral wheeze noted, no honchi or rales. No use of accessory muscles on inspiration or expiration. ABDOMEN: Soft, nontender. Nondistended. Bowel sounds heard in all 4 quadrants. No organomegaly or masses. Negative rebound, negative guarding EXTREMITIES: No edema, pulses are equal bilaterally. No cyanosis or clubbing NEUROLOGY: Mood and affect appear appropriate. Cranial nerves II through XII grossly intact. Moving all extremities, speech is clear Results - Labs CBC & Chem 7: 04/03/18 06:00 04/05/18 02:45 Laboratory Results - last 24 hr 04/04/18 04/04/18 04/04/18 07:30 13:26 19:18 Sodium 123 L* D 124 L* 123 L* 04/05/18 02:45 Sodium 125 L Microbiology 04/02/18 06:10 Blood - Peripheral Aerobic Blood Culture - Preliminary No growth in 2 days 04/02/18 06:10 Blood - Peripheral Anaerobic Blood Culture - Preliminary No growth in 2 days 04/02/18 06:05 Blood - Peripheral Aerobic Blood Culture - Preliminary No growth in 2 days 04/02/18 06:05 Blood - Peripheral Anaerobic Blood Culture - Preliminary No growth in 2 days Assessment and Plan - Assessment (1) Hyponatremia Code(s): E87.1 - Hypo-osmolality and hyponatremia Status: Acute - Plan Hyponatremia, persistent -Likely multifactorial with patient on HCTZ diuretic, SSRI, SNRI, lung cancer -Serum osmolality 262, urine osmolality 483, urine sodium 79 -TSH is normal -Continue to hold HCTZ, SSRI, SNRI -Continue fluid restriction 1000 mL's daily -Increase to sodium chloride 1 g twice daily -Lasix 20 mg p.o. twice daily -Continue to follow sodium level Lung cancer -Patient is undergoing outpatient management with Dr. Lamar, Dr. Mohan -CT scan does show right lower, with right lower and right middle lobe interstitial thickening -Patient will continue outpatient follow-up -Family requesting consult with patient's oncologist -Oncology did evaluate the patient and discussed with them treatment plans for paraneoplastic syndrome, immunotherapy to start an outpatient setting. Oncologist indicates that patient should continue salt tablets and fluid restriction upon discharge. Plan to continue to proceed with treatment of the hyponatremia by treating underlying lung cancer systemically. Chronic obstructive pulmonary disease -Continue O2 sat mentation maintain O2 sats greater than 92% -Duo nebs Chronic atrial fibrillation -Continue home medications -Patient anticoagulated with Eliquis Anxiety -Xanax was continued DVT prevention -Patient is on Eliquis Discharge Planning: Discharge planning once hyponatremia has improved in order to follow-up with oncology to undergo immunotherapy to treat the source of the hyponatremia
[2018-04-05] MEDS: Sodium Chloride 1 GM Tablet PO SCH ×2 (08:03→20:19)
[2018-04-05] MEDS: Furosemide 20 MG Tablet PO SCH ×3 (08:03→17:01)
[2018-04-05] MEDS: Senna/Docusate Sodium 8.6/50 MG Tablet PO SCH ×2 (08:04→20:19)
[2018-04-05] MEDS: ALPRAZolam 0.5 MG Tablet PO PRN (14:10)
[2018-04-06] MEDS: Sodium Chloride 1 GM Tablet PO SCH (08:52)
[2018-04-06] MEDS: Senna/Docusate Sodium 8.6/50 MG Tablet PO SCH (08:53)
--- NOTE | 2018-04-06 10:57 | P.DCO ---
- Physical Therapy Order: Evaluate and treat, Improve ambulation, Strength and gait training - Home Health Nursing Order: Medical education, Signs/symptoms of disease process, Oxygen administration education, Nursing assessment with vital signs - Certification I have seen patient Lisa Tilley on 04/06/18. My clinical findings support the need for the requested home health care services because: Patient has SOB, Deconditioned with increased weakness I certify that my clinical findings support that this patient is homebound because: Hx COPD - exertion dyspnea/weakness, Unsteady gait/balance, Unsafe to leave home unassisted
--- NOTE | 2018-04-06 13:06 | P.DS ---
Date of admission: 04/02/18 09:28 Primary care physician: Olga Inman MD Attending physician on discharge: Quincy Theodore Anticipated date of discharge: 04/06/18 Brief History from admission: 82-year-old female with known history of hypertension, chronic atrial fibrillation, chronic obstructive pulmonary disease, lung cancer, colon cancer who presented to the hospital due to shortness of breath and dyspnea. Patient states that her last 6 weeks she has had shortness of breath, dyspnea. She is undergoing treatment for lung cancer by Dr. Mohan (radiation oncologist), Dr. Lamar (oncologist). Patient is to undergo an radiation treatment. Patient states that she is not a candidate for chemotherapy. Over the last 2 days she has been experiencing increased shortness of breath, dyspnea, mucus production. Because that reason she came to emergency department for evaluation. Respiratory mclain patient had both the unremarkable workup. Patient had workup incidentally patient was found to have significant hyponatremia. Patient was asymptomatic for any hyponatremia. Because of the significant level patient will require hospitalization for further management. Upon evaluating the patient she is resting comfortably on room air with good O2 saturations. Full discussion with her condition and she does understand. Patient is very eager to go home in the next day or 2. DS: Diagnosis - Discharge Diagnosis (1) Hyponatremia Status: Acute DS: Medications - Discharge Medications Prescriptions: sodium chloride 1 gm PO BID #60 tab DS: Summary Hospital Course: 82-year-old female with known history of lung cancer, undergoing outpatient management had 2 day history of shortness of breath and dyspnea. Patient presented to the emergency department for evaluation. Patient had mild hypoxia with O2 saturation 87% in the emergency department. Patient had further workup done with CTA of the chest with did show right lower lobe carcinoma, interstitial thickening and consolidation involving the right lower lobe and right middle lobe which may represent lymphangitic spread, no pulmonary emboli. Incidentally the patient had laboratory studies done which did show significant hyponatremia at 120. Because that reason the patient was admitted to the ICU for continued care. Patient with multiple factors contributing to hyponatremia to include HCTZ, SSRI, SNRI and paraneoplastic syndrome. Patient's medications contributing to hyponatremia were held. Patient was placed on fluid restriction with only minimal improvement. Patient was started on cell tablets with mild improvement. Oncology was consulted for further evaluation who recommended to the family that they could try to undergo immunotherapy in outpatient setting to help correct the hyponatremia due to the paraneoplastic syndrome. After discussion with oncologist they recommended that if patient sodium is 124 or higher patient may be discharged safely and they will require outpatient follow-up for immunotherapy. Patient's respiratory status did quite well in the hospital. She cannot tolerate the nebulizer treatments, however she did use her own inhaler with improvement. Patient continued to be O2 dependent. Walk study was performed which did indicate patient required oxygen upon discharge. Case management was consulted and oxygen was set up. Patient clinically stable this time. Physical therapy did follow patient during her stay in the hospital and it was recommended by physical therapy that she have home health care PT. This was offered to the family, however they are deferring home health care at this time. We will discharge patient accordingly. - Time Spent with Patient Total time spent providing and/or coordinating discharge services: Greater than 30 minutes - Quality: VTE Deep Vein Thrombosis/Pulmonary Embolism Present on Admission: No Exam Vital signs: Vital Signs 04/05/18 15:35 04/05/18 15:54 04/05/18 16:00 Temperature 100.2 F H Pulse Rate 91 H 110 H Respiratory Rate 22 Blood Pressure 135/61 Pulse Oximetry 96 94 L Pulse Oximetry [Exertion on Room Air] Pulse Oximetry [Resting on Room Air] Pulse Oximetry [Resting with Oxygen] 04/05/18 20:00 04/05/18 20:10 04/06/18 00:00 Temperature 96.2 F L 97.5 F L Pulse Rate 77 84 Respiratory Rate 16 16 Blood Pressure 100/54 L 111/61 Pulse Oximetry 95 94 L 96 Pulse Oximetry [Exertion on Room Air] Pulse Oximetry [Resting on Room Air] Pulse Oximetry [Resting with Oxygen] 04/06/18 04:00 04/06/18 07:51 04/06/18 08:00 Temperature 97.5 F L 99.8 F H Pulse Rate 74 101 H Respiratory Rate 16 22 Blood Pressure 102/55 L 119/58 L Pulse Oximetry 96 92 L 89 L Pulse Oximetry [Exertion on Room Air] Pulse Oximetry [Resting on Room Air] Pulse Oximetry [Resting with Oxygen] 04/06/18 10:32 04/06/18 12:00 Temperature 97.1 F L Pulse Rate Respiratory Rate 21 Blood Pressure 155/83 H Pulse Oximetry 95 Pulse Oximetry [Exertion on Room Air] 85 L Pulse Oximetry [Resting on Room Air] 94 L Pulse Oximetry [Resting with Oxygen] 97 Intake & Output 04/05/18 04/06/18 04/06/18 18:59 06:59 18:59 Intake Total 750 / 750 480 / 480 Output Total 350 / 350 401 / 401 Balance 400 / 400 79 / 79 Intake: Oral 750 / 750 480 / 480 Output: Urine 350 / 350 400 / 400 Stool / Other: # Voids 1 Date of Last Bowel Movement 04/04/18 04/06/18 Narrative: GENERAL: Well-developed, well-nourished, in no acute distress. alert and orientated HEENT: Head is normocephalic without any lesions or masses noted. Facial features are symmetric. Eyes: Extraocular muscles are intact. Conjunctivae were clear. NECK: Supple without any masses. Trachea midline no deviation. No JVD, CARDIAC: Regular rhythm, regular rate. S1/S2 are heard. No murmurs gallops or rubs. LUNGS: Bilateral wheeze noted, no honchi or rales. No use of accessory muscles on inspiration or expiration. ABDOMEN: Soft, nontender. Nondistended. Bowel sounds heard in all 4 quadrants. No organomegaly or masses. Negative rebound, negative guarding EXTREMITIES: No edema, pulses are equal bilaterally. No cyanosis or clubbing NEUROLOGY: Mood and affect appear appropriate. Cranial nerves II through XII grossly intact. Moving all extremities, speech is clear Results Procedures completed during hospitalization: None Labs on day of discharge: Labs from last 24 hours 04/06/18 04/06/18 04/05/18 07:46 01:00 19:00 Sodium 124 L* 121 L* 122 L* 04/05/18 13:20 Sodium 125 L Preliminary micro results at discharge 04/02/18 06:10 Aerobic Blood Culture - Preliminary Blood - Peripheral No growth in 4 days Anaerobic Blood Culture - Preliminary No growth in 4 days 04/02/18 06:05 Aerobic Blood Culture - Preliminary Blood - Peripheral No growth in 4 days Anaerobic Blood Culture - Preliminary No growth in 4 days - Impressions ITS Impressions Chest X-Ray 04/02/18 05:24 CONCLUSION: No infiltrates seen. Hyperaerated lungs. Abdomen/Pelvis CT 04/02/18 06:21 CONCLUSION: 1. Irregular mass identified within the right lower lobe consistent with the patient's known carcinoma. Interstitial thickening identified within the right lower lobe and right middle lobe may represent lymphangitic spread of disease versus superimposed infectious process. 2. No evidence of inflammatory process within the abdomen or pelvis. No evidence of metastatic disease within the abdomen or pelvis. Chest CTA 04/02/18 06:21 CONCLUSION: 1. No right lower lobe carcinoma. The interstitial thickening and consolidation involving the right lower lobe and right middle lobe may represent lymphangitic spread of disease versus superimposed infectious process. 2. No evidence of PE. Discharge Plan - Discharge Disposition Patient Disposition: 01 Discharge Home - Discharge Condition Condition: Stable - Discharge Order Discharge Orders: Discharge Order (Routine); Ordered 04/06/18 Ordered By: Jeo Baron - Discharge Details Anticipated Discharge Date: 04/06/18 - Physicians Team Primary Care Provider: Olga Inman Attending Provider: Quincy Theodore Other Providers: Virginia Coleman ; Michael Connors MD
== END 2018-04-06 14:00 | disposition home or self-care (01) ==
LOC: PHED 05:10 → PHEDA 09:28 → PHICU 10:32 → PH3 04-05 13:53
PROVIDERS: ADMIT Family Medicine; ATTEND Family Medicine